=== PATIENT | male | born 1955 | race Asian ===

== ENCOUNTER 2017-10-12 14:20 | Inpatient (IN) | payer OTHER ==
[2017-10-12] MEDS ORDERED: PROPOFOL 100 ML (14:27)
[2017-10-12] MEDS: PROPOFOL 100 ML IV (14:30)
[2017-10-12] MEDS ORDERED: morphine 2 MG INJ IV ×2 (15:00→16:30)
[2017-10-12] MEDS ORDERED: NACL 0.9% 3 ML SYG IV (16:30)
[2017-10-12] MEDS ORDERED: IPRATROPIUM (NEB) 0.5 MG/2.5 ML AMP NEB (16:30)
[2017-10-12 17:18] LABS: ANION GAP 11 (8-16); BLOOD UREA NITROGEN 23 mg/dl (7-20); CALCIUM 8.5 mg/dl (8.4-10.2); CARBON DIOXIDE 29 mmol/L (21-31); CHLORIDE 110 mmol/L (97-110); CREATININE 0.87 mg/dl (0.61-1.24); GLUCOSE 179 mg/dl (70-220); POTASSIUM 3.5 mmol/L (3.5-5.1); SODIUM 146 mmol/L (135-144)
[2017-10-12] MEDS: ALBUTEROL/IPRATROPIUM (NEB) 3 ML AMP NEB (17:43)
[2017-10-12] MEDS: IPRATROPIUM (NEB) 0.5 MG/2.5 ML AMP NEB (17:43)
[2017-10-12] MEDS: FUROSEMIDE 40 MG TAB GTB (17:58)
[2017-10-12] MEDS: CEFTRIAXONE 1 GM/50 ML (PMX) 50 ML IVPB (17:58)
[2017-10-12] MEDS: PANTOPRAZOLE 40 MG INJ IV (18:03)
[2017-10-12] MEDS: INSULIN ASPART [NOVOLOG] 3 ML PEN SC (18:04)
[2017-10-12 18:07] LABS: AADO2 Arterial 152.7 mmHg (7.0-24.0); Allen Test ACCEPTAB; Arterial Base Excess 1.7 mmol/L (-3.0-3); Arterial Blood Gas Oxygen Sat 98.7 mmHG (95.0-98.0); Arterial COHb 0.3 % (0.0-3.0); Arterial HCO3 23.9 mmol/L (22.0-26.0); Arterial MetHb 0.4 % (0.0-1.5); Arterial Total Hemglobin 9.1 g/dl (12.0-18.0); Arterial pCO2 28.7 mmhg (35-45); MODE VENT - AC; Site Left Radial
[2017-10-12] MEDS ORDERED: GLUCOSE GEL 15 GRAM TUBE PO ×2 (20:30)
[2017-10-12] MEDS ORDERED: DEXTROSE 50% 50 ML SYRINGE IV ×2 (20:30)
[2017-10-12] MEDS ORDERED: GLUCOSE GEL 15 GRAM TUBE BUCCAL (20:30)
[2017-10-12] MEDS ORDERED: GLUCAGON 1 MG INJ IM (20:30)
[2017-10-12] MEDS ORDERED: LEVETIRACETAM 500 MG IV (21:00)
[2017-10-12] MEDS: ALBUTEROL HFA 8 GM INHALER INH (21:14)
[2017-10-12] MEDS: IPRATROPIUM (HFA) 12.9 GM INHALER INH (21:14)
[2017-10-12] MEDS: AMLODIPINE 5 MG TAB PO (21:52)
[2017-10-12] MEDS: LEVETIRACETAM 500 MG (PMX) 100 ML IVPB (21:52)
[2017-10-12] MEDS: LABETALOL 100 MG TAB GTB (21:53)
[2017-10-12] MEDS ORDERED: NIFEdipine 10 MG CAP PO (22:00)
[2017-10-13] MEDS: PROPOFOL 100 ML IV (00:23)
[2017-10-13] MEDS: INSULIN ASPART [NOVOLOG] 3 ML PEN SC ×4 (00:27→17:51)
[2017-10-13] MEDS: IPRATROPIUM (HFA) 12.9 GM INHALER INH ×6 (01:24→21:26)
[2017-10-13] MEDS: ALBUTEROL HFA 8 GM INHALER INH ×6 (01:24→21:25)
[2017-10-13] MEDS: ACETAMINOPHEN 325 MG TAB PO ×2 (01:50→21:33)
[2017-10-13] MEDS ORDERED: ACCU-CHEK XX (02:00)
[2017-10-13 02:22] LABS: ADD UMIC YES; UR ASCORBIC ACID 40 mg/dL (NEGATIVE); UR BILIRUBIN (Dip) NEGATIVE (NEGATIVE); UR BLOOD (Dip) NEGATIVE (NEGATIVE); UR CLARITY CLEAR (CLEAR); UR COLOR YELLOW (YELLOW); UR GLUCOSE (Dip) NEGATIVE (NEGATIVE); UR KETONES (Dip) TRACE mg/dL (NEGATIVE); UR LEUKOCYTE ESTERASE (Dip) NEGATIVE Leu/ul (NEGATIVE); UR NITRITE (Dip) NEGATIVE (NEGATIVE); UR RBC 18 /HPF (0-5); UR SPECIFIC GRAVITY (Dip) 1.018 (1.003-1.030); UR TOTAL PROTEIN (Dip) 1+ mg/dl (NEGATIVE); UR UROBILINOGEN (Dip) NEGATIVE (NEGATIVE); UR WBC 4 /HPF (0-5)
[2017-10-13] MEDS: PANTOPRAZOLE 40 MG INJ IV (05:06)
[2017-10-13] MEDS: FUROSEMIDE 40 MG TAB GTB ×2 (05:06→17:00)
[2017-10-13 05:49] LABS: ADD MAN DIFF? NO
[2017-10-13 05:56] LABS: BASOPHILS % 0.2 % (0.0-2.0); EOSINOPHILS # 0.3 10^3/ul (0.0-0.5); EOSINOPHILS % 1.8 % (0.0-7.0); HEMATOCRIT 25.6 % (42.0-52.0); HEMOGLOBIN 8.3 g/dl (14.0-18.0); LYMPHOCYTES # 1.3 10^3/ul (0.8-2.9); LYMPHOCYTES % 8.4 % (15.0-51.0); MEAN CORPUSCULAR HEMOGLOBIN 30.1 pg (29.0-33.0); MEAN CORPUSCULAR HGB CONC 32.4 g/dl (32.0-37.0); MEAN CORPUSCULAR VOLUME 92.8 fl (82.0-101.0); MEAN PLATELET VOLUME 10.3 fl (7.4-10.4); MONOCYTE # 0.8 10^3/ul (0.3-0.9); MONOCYTES % 5.2 % (0.0-11.0); NEUTROPHIL # 12.7 10^3/ul (1.6-7.5); NEUTROPHILS % 83.6 % (39.0-77.0); PLATELET COUNT 457 10^3/UL (140-415); RED BLOOD COUNT 2.76 10^6/ul (4.70-6.10); RED CELL DISTRIBUTION WIDTH 13.3 % (11.5-14.5)
[2017-10-13 05:56] LABS: WHITE BLOOD COUNT 15.2 10^3/ul (4.8-10.8)
[2017-10-13 06:18] LABS: ANION GAP 13 (8-16); BLOOD UREA NITROGEN 21 mg/dl (7-20); CALCIUM 8.3 mg/dl (8.4-10.2); CARBON DIOXIDE 28 mmol/L (21-31); CHLORIDE 109 mmol/L (97-110); CREATININE 0.86 mg/dl (0.61-1.24); GLUCOSE 164 mg/dl (70-220); MAGNESIUM 1.9 mg/dl (1.7-2.5); PHOSPHORUS 4.3 mg/dl (2.5-4.9); POTASSIUM 3.5 mmol/L (3.5-5.1); SODIUM 146 mmol/L (135-144)
[2017-10-13 08:10] LABS: AADO2 Arterial 73.8 mmHg (7.0-24.0); Allen Test ACCEPTAB; Arterial Base Excess 2.5 mmol/L (-3.0-3); Arterial Blood Gas Oxygen Sat 97.6 mmHG (95.0-98.0); Arterial COHb 0.3 % (0.0-3.0); Arterial Fraction of Oxyhgb 97.1 % (93.0-99.0); Arterial HCO3 24.2 mmol/L (22.0-26.0); Arterial MetHb 0.2 % (0.0-1.5); Arterial Total Hemglobin 9.9 g/dl (12.0-18.0); Arterial pCO2 27.6 mmhg (35-45); MODE VENT - AC; Site Right Radial
[2017-10-13] MEDS: LEVETIRACETAM 500 MG (PMX) 100 ML IVPB ×2 (08:44→21:16)
[2017-10-13] MEDS: AMLODIPINE 5 MG TAB PO ×2 (08:47→21:16)
[2017-10-13] MEDS: LABETALOL 100 MG TAB GTB ×2 (08:47→21:16)
[2017-10-13 11:37] LABS: AADO2 Arterial 71.6 mmHg (7.0-24.0); Allen Test ACCEPTAB; Arterial Base Excess 1.6 mmol/L (-3.0-3); Arterial Blood Gas Oxygen Sat 97.4 mmHG (95.0-98.0); Arterial COHb 0.3 % (0.0-3.0); Arterial Fraction of Oxyhgb 96.9 % (93.0-99.0); Arterial HCO3 24.4 mmol/L (22.0-26.0); Arterial MetHb 0.2 % (0.0-1.5); Arterial Total Hemglobin 10.1 g/dl (12.0-18.0); Arterial pCO2 32.1 mmhg (35-45); Blood Gas PS 10; MODE VENT - CPAP; Site Right Radial
[2017-10-13] MEDS: METOCLOPRAMIDE 10 MG INJ IV ×2 (12:13→17:00)
[2017-10-13] MEDS: SOD FERRIC GLUC COMPLX 125 MG in SOD CHLORIDE 0.9% 100 ML IVPB (17:01)
[2017-10-13] MEDS: CEFTRIAXONE 1 GM/50 ML (PMX) 50 ML IVPB (17:01)
[2017-10-14] MEDS: METOCLOPRAMIDE 10 MG INJ IV ×4 (00:46→18:21)
[2017-10-14] MEDS: INSULIN ASPART [NOVOLOG] 3 ML PEN SC ×4 (00:52→18:21)
[2017-10-14] MEDS: IPRATROPIUM (HFA) 12.9 GM INHALER INH ×6 (01:36→20:02)
[2017-10-14] MEDS: ALBUTEROL HFA 8 GM INHALER INH ×6 (01:36→20:02)
[2017-10-14 02:44] LABS: AADO2 Arterial 223.1 mmHg (7.0-24.0); Arterial Base Excess 3.3 mmol/L (-3.0-3); Arterial Blood Gas Oxygen Sat 99.3 mmHG (95.0-98.0); Arterial COHb 0.3 % (0.0-3.0); Arterial Fraction of Oxyhgb 98.5 % (93.0-99.0); Arterial HCO3 26.8 mmol/L (22.0-26.0); Arterial MetHb 0.5 % (0.0-1.5); Arterial pCO2 36.7 mmhg (35-45); MODE MASK - NRB; Site LB
[2017-10-14] MEDS: PROPOFOL 100 ML IV ×3 (05:24→18:42)
[2017-10-14] MEDS: PANTOPRAZOLE 40 MG INJ IV (05:28)
[2017-10-14] MEDS: FUROSEMIDE 40 MG TAB GTB ×3 (05:29→20:58)
[2017-10-14 05:45] LABS: ADD MAN DIFF? NO
[2017-10-14 05:52] LABS: Allen Test ACCEPTAB; Arterial Base Excess 2.4 mmol/L (-3.0-3); Arterial Blood Gas Oxygen Sat 93.9 mmHG (95.0-98.0); Arterial COHb 0.3 % (0.0-3.0); Arterial Fraction of Oxyhgb 93.1 % (93.0-99.0); Arterial HCO3 25.1 mmol/L (22.0-26.0); Arterial MetHb 0.5 % (0.0-1.5); Arterial Total Hemglobin 9.4 g/dl (12.0-18.0); MODE VENT - AC
[2017-10-14 06:03] LABS: BASOPHIL # 0.1 10^3/ul (0.0-0.1); BASOPHILS % 0.2 % (0.0-2.0); EOSINOPHILS # 0.2 10^3/ul (0.0-0.5); EOSINOPHILS % 1.1 % (0.0-7.0); HEMATOCRIT 30.5 % (42.0-52.0); HEMOGLOBIN 9.9 g/dl (14.0-18.0); LYMPHOCYTES # 1.2 10^3/ul (0.8-2.9); LYMPHOCYTES % 5.7 % (15.0-51.0); MEAN CORPUSCULAR HEMOGLOBIN 29.8 pg (29.0-33.0); MEAN CORPUSCULAR HGB CONC 32.5 g/dl (32.0-37.0); MEAN CORPUSCULAR VOLUME 91.9 fl (82.0-101.0); MEAN PLATELET VOLUME 10.5 fl (7.4-10.4); MONOCYTE # 1.2 10^3/ul (0.3-0.9); MONOCYTES % 6.1 % (0.0-11.0); NEUTROPHIL # 17.4 10^3/ul (1.6-7.5); NEUTROPHILS % 86.1 % (39.0-77.0); PLATELET COUNT 576 10^3/UL (140-415); RED BLOOD COUNT 3.32 10^6/ul (4.70-6.10); RED CELL DISTRIBUTION WIDTH 13.1 % (11.5-14.5)
[2017-10-14 06:03] LABS: WHITE BLOOD COUNT 20.2 10^3/ul (4.8-10.8)
[2017-10-14 06:28] LABS: ANION GAP 16 (8-16); BLOOD UREA NITROGEN 18 mg/dl (7-20); CALCIUM 8.1 mg/dl (8.4-10.2); CARBON DIOXIDE 28 mmol/L (21-31); CHLORIDE 104 mmol/L (97-110); GLUCOSE 167 mg/dl (70-220); SODIUM 144 mmol/L (135-144)
[2017-10-14] MEDS ORDERED: niCARdipine 50 MG in SOD CHLORIDE 0.9% 480 ML IV (07:30)
[2017-10-14] MEDS: LABETALOL 100 MG TAB GTB ×2 (08:49→23:40)
[2017-10-14] MEDS: LEVETIRACETAM 500 MG (PMX) 100 ML IVPB ×2 (08:50→21:00)
[2017-10-14] MEDS: AMLODIPINE 5 MG TAB GTB (08:50)
[2017-10-14] MEDS: ACETAMINOPHEN 650MG/20.3ML CUP GTB (12:08)
[2017-10-14] MEDS: CEFTRIAXONE 1 GM/50 ML (PMX) 50 ML IVPB (16:26)
[2017-10-14] MEDS: SOD FERRIC GLUC COMPLX 125 MG in SOD CHLORIDE 0.9% 100 ML IVPB (17:15)
[2017-10-14] MEDS: INSULIN GLARGINE [LANtus] 3 ML PEN SC (21:26)
[2017-10-15] MEDS: METOCLOPRAMIDE 10 MG INJ IV ×5 (00:56→23:27)
[2017-10-15] MEDS: INSULIN ASPART [NOVOLOG] 3 ML PEN SC ×5 (01:10→20:25)
[2017-10-15] MEDS: ACETAMINOPHEN 650MG/20.3ML CUP GTB ×3 (01:32→20:15)
[2017-10-15] MEDS: ALBUTEROL HFA 8 GM INHALER INH ×6 (02:16→21:18)
[2017-10-15] MEDS: IPRATROPIUM (HFA) 12.9 GM INHALER INH ×6 (02:16→21:18)
[2017-10-15] MEDS ORDERED: VANCOMYCIN IV PER PHARMACY XX (02:30)
[2017-10-15] MEDS ORDERED: VANCOMYCIN 1.25 GM in SOD CHLORIDE 0.9% 250 ML IVPB (05:00)
[2017-10-15] MEDS: VANCOMYCIN 1 GM 250 ML IVPB (05:34)
[2017-10-15] MEDS: PANTOPRAZOLE 40 MG INJ IV (05:35)
[2017-10-15] MEDS: FUROSEMIDE 40 MG TAB GTB (05:36)
[2017-10-15 05:52] LABS: ADD MAN DIFF? NO
[2017-10-15 05:59] LABS: WHITE BLOOD COUNT 20.8 10^3/ul (4.8-10.8)
[2017-10-15 05:59] LABS: BASOPHILS % 0.2 % (0.0-2.0); EOSINOPHILS # 0.1 10^3/ul (0.0-0.5); EOSINOPHILS % 0.6 % (0.0-7.0); HEMATOCRIT 23.4 % (42.0-52.0); HEMOGLOBIN 7.8 g/dl (14.0-18.0); LYMPHOCYTES # 1.4 10^3/ul (0.8-2.9); LYMPHOCYTES % 6.9 % (15.0-51.0); MEAN CORPUSCULAR HEMOGLOBIN 30.7 pg (29.0-33.0); MEAN CORPUSCULAR HGB CONC 33.3 g/dl (32.0-37.0); MEAN CORPUSCULAR VOLUME 92.1 fl (82.0-101.0); MEAN PLATELET VOLUME 10.3 fl (7.4-10.4); MONOCYTE # 1.5 10^3/ul (0.3-0.9); MONOCYTES % 7.1 % (0.0-11.0); NEUTROPHIL # 17.6 10^3/ul (1.6-7.5); NEUTROPHILS % 84.2 % (39.0-77.0); PLATELET COUNT 457 10^3/UL (140-415); RED BLOOD COUNT 2.54 10^6/ul (4.70-6.10)
[2017-10-15 06:31] LABS: ANION GAP 11 (8-16); BLOOD UREA NITROGEN 20 mg/dl (7-20); CARBON DIOXIDE 29 mmol/L (21-31); CHLORIDE 105 mmol/L (97-110); GLUCOSE 188 mg/dl (70-220); MAGNESIUM 1.9 mg/dl (1.7-2.5); PHOSPHORUS 3.6 mg/dl (2.5-4.9); SODIUM 142 mmol/L (135-144)
[2017-10-15 06:55] LABS: POTASSIUM 2.9 mmol/L (3.5-5.1)
[2017-10-15] MEDS: AMLODIPINE 5 MG TAB GTB (09:10)
[2017-10-15] MEDS: LEVETIRACETAM 500 MG (PMX) 100 ML IVPB ×2 (09:11→20:14)
[2017-10-15] MEDS: LABETALOL 100 MG TAB GTB ×2 (09:11→20:15)
[2017-10-15] MEDS: POTASSIUM CHLORIDE 20 MEQ/SW 100 ML IVPB ×2 (10:32→12:30)
[2017-10-15] MEDS: PROPOFOL 100 ML IV (11:28)
[2017-10-15 17:05] LABS: HEMATOCRIT 24.5 % (42.0-52.0)
[2017-10-15] MEDS: CEFTRIAXONE 1 GM/50 ML (PMX) 50 ML IVPB (17:16)
[2017-10-15 17:21] LABS: POTASSIUM 3.9 mmol/L (3.5-5.1)
[2017-10-15] MEDS: SOD FERRIC GLUC COMPLX 125 MG in SOD CHLORIDE 0.9% 100 ML IVPB (17:51)
[2017-10-15] MEDS ORDERED: INSULIN GLARGINE [LANtus] 3 ML PEN SC (20:00)
[2017-10-15] MEDS: VANCOMYCIN 750 MG in DEXTROSE 5% 150 ML IVPB (20:14)
[2017-10-15] MEDS: INSULIN GLARGINE [LANtus] 3 ML PEN SC (20:26)
[2017-10-16] MEDS: PROPOFOL 100 ML IV (00:38)
[2017-10-16] MEDS: INSULIN ASPART [NOVOLOG] 3 ML PEN SC ×6 (01:22→20:29)
[2017-10-16] MEDS: ALBUTEROL HFA 8 GM INHALER INH ×6 (01:28→21:56)
[2017-10-16] MEDS: IPRATROPIUM (HFA) 12.9 GM INHALER INH ×6 (01:28→21:56)
[2017-10-16] MEDS: ACETAMINOPHEN 650MG/20.3ML CUP GTB ×3 (03:13→16:33)
[2017-10-16 05:34] LABS: ADD MAN DIFF? NO
[2017-10-16] MEDS: PANTOPRAZOLE 40 MG INJ IV (05:44)
[2017-10-16] MEDS: METOCLOPRAMIDE 10 MG INJ IV ×3 (05:44→17:51)
[2017-10-16] MEDS: VANCOMYCIN 750 MG in DEXTROSE 5% 150 ML IVPB (05:44)
[2017-10-16 06:05] LABS: WHITE BLOOD COUNT 22.1 10^3/ul (4.8-10.8)
[2017-10-16 06:05] LABS: BASOPHILS % 0.1 % (0.0-2.0); EOSINOPHILS # 0.1 10^3/ul (0.0-0.5); EOSINOPHILS % 0.5 % (0.0-7.0); HEMATOCRIT 22.4 % (42.0-52.0); HEMOGLOBIN 7.4 g/dl (14.0-18.0); LYMPHOCYTES # 1.1 10^3/ul (0.8-2.9); MEAN CORPUSCULAR HEMOGLOBIN 29.8 pg (29.0-33.0); MEAN CORPUSCULAR VOLUME 90.3 fl (82.0-101.0); MEAN PLATELET VOLUME 10.3 fl (7.4-10.4); MONOCYTE # 1.3 10^3/ul (0.3-0.9); MONOCYTES % 5.8 % (0.0-11.0); NEUTROPHIL # 19.3 10^3/ul (1.6-7.5); NEUTROPHILS % 87.3 % (39.0-77.0); PLATELET COUNT 507 10^3/UL (140-415); RED BLOOD COUNT 2.48 10^6/ul (4.70-6.10); RED CELL DISTRIBUTION WIDTH 12.8 % (11.5-14.5)
[2017-10-16 07:46] LABS: ALANINE AMINOTRANSFERASE 25 IU/L (13-69); ALBUMIN 2.5 g/dl (3.3-4.9); ALBUMIN/GLOBULIN RATIO 0.73; ALKALINE PHOSPHATASE 125 IU/L (42-121); ANION GAP 10 (8-16); ASPARTATE AMINO TRANSFERASE 23 IU/L (15-46); BILIRUBIN,INDIRECT 0.2 mg/dl (0-1.1); BILIRUBIN,TOTAL 0.2 mg/dl (0.2-1.3); BLOOD UREA NITROGEN 18 mg/dl (7-20); CARBON DIOXIDE 28 mmol/L (21-31); CHLORIDE 103 mmol/L (97-110); GLUCOSE 222 mg/dl (70-220); POTASSIUM 3.3 mmol/L (3.5-5.1); SODIUM 138 mmol/L (135-144); TOTAL PROTEIN 5.9 g/dl (6.1-8.1)
[2017-10-16] MEDS ORDERED: POTASSIUM CHLORIDE 20 MEQ POWDER FOR ORAL SOLN PO ×2 (08:30)
[2017-10-16] MEDS: LEVETIRACETAM 500 MG (PMX) 100 ML IVPB ×2 (08:46→20:19)
[2017-10-16] MEDS: LABETALOL 100 MG TAB GTB ×2 (08:47→20:19)
[2017-10-16] MEDS: FUROSEMIDE 40 MG TAB GTB (08:47)
[2017-10-16] MEDS: AMLODIPINE 5 MG TAB GTB (08:48)
[2017-10-16] MEDS: POTASSIUM CHLORIDE 20 MEQ POWDER FOR ORAL SOLN PO (08:51)
[2017-10-16] MEDS: CEFEPIME 2GM/50 ML (PMX) 50 ML IVPB ×2 (11:28→20:19)
[2017-10-16 12:31] LABS: IRON 23 ug/dl (35-150)
[2017-10-16 12:40] LABS: % IRON SATURATION 14 % SAT (22-52); TOTAL IRON BINDING CAPACITY 170 ug/dl (241-421)
[2017-10-16] MEDS ORDERED: INSULIN ASPART [NOVOLOG] 3 ML PEN SC (13:00)
[2017-10-16 14:48] LABS: AADO2 Arterial 81.2 mmHg (7.0-24.0); Allen Test ACCEPTAB; Arterial Base Excess 1.3 mmol/L (-3.0-3); Arterial Blood Gas Oxygen Sat 97.3 mmHG (95.0-98.0); Arterial COHb 0.2 % (0.0-3.0); Arterial Fraction of Oxyhgb 96.6 % (93.0-99.0); Arterial HCO3 24.1 mmol/L (22.0-26.0); Arterial MetHb 0.5 % (0.0-1.5); Arterial Total Hemglobin 8.9 g/dl (12.0-18.0); Arterial pCO2 31.3 mmhg (35-45); Blood Gas PS 10; MODE VENT - CPAP; Site Right Radial
[2017-10-16] MEDS: SOD FERRIC GLUC COMPLX 125 MG in SOD CHLORIDE 0.9% 100 ML IVPB (16:33)
[2017-10-16 16:45] LABS: VANCOMYCIN,TROUGH 8.5 ug/ml (10.0-20.0)
[2017-10-16] MEDS: VANCOMYCIN 1 GM 250 ML IVPB (17:51)
[2017-10-16] MEDS: INSULIN GLARGINE [LANtus] 3 ML PEN SC (20:28)
[2017-10-17] MEDS: INSULIN ASPART [NOVOLOG] 3 ML PEN SC ×6 (00:02→20:45)
[2017-10-17] MEDS: ALBUTEROL HFA 8 GM INHALER INH ×6 (01:23→21:53)
[2017-10-17] MEDS: IPRATROPIUM (HFA) 12.9 GM INHALER INH ×6 (01:23→21:52)
[2017-10-17] MEDS ORDERED: ACCU-CHEK XX (02:00)
[2017-10-17] MEDS: ACETAMINOPHEN 650MG/20.3ML CUP GTB (04:23)
[2017-10-17] MEDS: PROPOFOL 100 ML IV ×2 (04:24→23:57)
[2017-10-17] MEDS: VANCOMYCIN 1 GM 250 ML IVPB (04:31)
[2017-10-17 05:06] LABS: ABNORMAL IP MESSAGE 1; HEMATOCRIT 25.8 % (42.0-52.0); HEMOGLOBIN 8.4 g/dl (14.0-18.0); MEAN CORPUSCULAR HEMOGLOBIN 29.7 pg (29.0-33.0); MEAN CORPUSCULAR HGB CONC 32.6 g/dl (32.0-37.0); MEAN CORPUSCULAR VOLUME 91.2 fl (82.0-101.0); MEAN PLATELET VOLUME 10.1 fl (7.4-10.4); PLATELET COUNT 592 10^3/UL (140-415); POSITIVE DIFF @See below; RED BLOOD COUNT 2.83 10^6/ul (4.70-6.10); RED CELL DISTRIBUTION WIDTH 12.9 % (11.5-14.5)
[2017-10-17 05:38] LABS: ALANINE AMINOTRANSFERASE 35 IU/L (13-69); ALBUMIN 2.8 g/dl (3.3-4.9); ALBUMIN/GLOBULIN RATIO 0.73; ALKALINE PHOSPHATASE 183 IU/L (42-121); ANION GAP 12 (8-16); ASPARTATE AMINO TRANSFERASE 31 IU/L (15-46); BILIRUBIN,INDIRECT 0.3 mg/dl (0-1.1); BILIRUBIN,TOTAL 0.3 mg/dl (0.2-1.3); BLOOD UREA NITROGEN 16 mg/dl (7-20); CALCIUM 8.4 mg/dl (8.4-10.2); CARBON DIOXIDE 29 mmol/L (21-31); CHLORIDE 103 mmol/L (97-110); CREATININE 0.78 mg/dl (0.61-1.24); GLUCOSE 122 mg/dl (70-220); POTASSIUM 3.7 mmol/L (3.5-5.1); SODIUM 140 mmol/L (135-144); TOTAL PROTEIN 6.6 g/dl (6.1-8.1)
[2017-10-17] MEDS: PANTOPRAZOLE 40 MG INJ IV (05:40)
[2017-10-17] MEDS: METOCLOPRAMIDE 10 MG INJ IV ×4 (05:40→17:19)
[2017-10-17 05:47] LABS: PHOSPHORUS 3.2 mg/dl (2.5-4.9)
[2017-10-17 05:47] LABS: ADD MAN DIFF? YES; MAGNESIUM 1.8 mg/dl (1.7-2.5)
[2017-10-17] MEDS: LEVETIRACETAM 500 MG (PMX) 100 ML IVPB ×2 (08:57→20:46)
[2017-10-17] MEDS: CEFEPIME 2GM/50 ML (PMX) 50 ML IVPB (08:57)
[2017-10-17] MEDS: FUROSEMIDE 40 MG TAB GTB (08:59)
[2017-10-17] MEDS: LABETALOL 100 MG TAB GTB ×2 (08:59→20:41)
[2017-10-17] MEDS: AMLODIPINE 10 MG TAB GTB (09:00)
[2017-10-17 13:55] LABS: ANISOCYTOSIS 1+ (0-0); BAND NEUTROPHILS #M 4.4 10^3/ul (0.0-0.6); BAND NEUTROPHILS % (M) 17 % (0-4); EOSINOPHILS % (M) 1 % (0-7); LYMPHOCYTES #M 1.8 10^3/ul (0.8-2.9); LYMPHOCYTES % (M) 7 % (15-51); MONOCYTE #M 1.3 10^3/ul (0.3-0.9); MONOCYTES % (M) 5 % (0-11); OVALOCYTES 1+ (0-0); PLATELET ESTIMATE INCREASED; POIKILOCYTOSIS 1+ (0-0); POLYCHROMASIA 1+ (0-0); SEG NEUT #M 19.3 10^3/ul (1.6-7.5); SEGMENTED NEUTROPHILS (M) % 70 % (39-77)
[2017-10-17] MEDS: PIPER-TAZO 3.375 GM IV (PMX) 100 ML IVPB ×2 (15:03→22:21)
[2017-10-17] MEDS: DOCUSATE SODIUM 10 MG/ML (10ML CUP) GTB (20:40)
[2017-10-17] MEDS: INSULIN GLARGINE [LANtus] 3 ML PEN SC (20:44)
[2017-10-18] MEDS: METOCLOPRAMIDE 10 MG INJ IV ×4 (00:05→17:04)
[2017-10-18] MEDS: ACETAMINOPHEN 650MG/20.3ML CUP GTB (00:05)
[2017-10-18] MEDS: INSULIN ASPART [NOVOLOG] 3 ML PEN SC ×6 (01:00→21:49)
[2017-10-18] MEDS: IPRATROPIUM (HFA) 12.9 GM INHALER INH ×6 (01:16→21:03)
[2017-10-18] MEDS: ALBUTEROL HFA 8 GM INHALER INH ×6 (01:16→21:04)
[2017-10-18 05:11] LABS: ABNORMAL IP MESSAGE 1; HEMATOCRIT 22.7 % (42.0-52.0); HEMOGLOBIN 7.6 g/dl (14.0-18.0); MEAN CORPUSCULAR HEMOGLOBIN 30.5 pg (29.0-33.0); MEAN CORPUSCULAR HGB CONC 33.5 g/dl (32.0-37.0); MEAN CORPUSCULAR VOLUME 91.2 fl (82.0-101.0); MEAN PLATELET VOLUME 10.1 fl (7.4-10.4); PLATELET COUNT 529 10^3/UL (140-415); POSITIVE DIFF @See below; RED BLOOD COUNT 2.49 10^6/ul (4.70-6.10); RED CELL DISTRIBUTION WIDTH 12.7 % (11.5-14.5)
[2017-10-18 05:21] LABS: ADD MAN DIFF? YES
[2017-10-18] MEDS: PANTOPRAZOLE 40 MG INJ IV (05:31)
[2017-10-18] MEDS: PIPER-TAZO 3.375 GM IV (PMX) 100 ML IVPB ×3 (05:31→21:39)
[2017-10-18 05:48] LABS: ALANINE AMINOTRANSFERASE 32 IU/L (13-69); ALBUMIN 2.6 g/dl (3.3-4.9); ALKALINE PHOSPHATASE 186 IU/L (42-121); ANION GAP 12 (8-16); ASPARTATE AMINO TRANSFERASE 31 IU/L (15-46); BILIRUBIN,INDIRECT 0.4 mg/dl (0-1.1); BILIRUBIN,TOTAL 0.4 mg/dl (0.2-1.3); BLOOD UREA NITROGEN 18 mg/dl (7-20); CALCIUM 8.1 mg/dl (8.4-10.2); CARBON DIOXIDE 29 mmol/L (21-31); CHLORIDE 100 mmol/L (97-110); CREATININE 0.87 mg/dl (0.61-1.24); GLUCOSE 147 mg/dl (70-220); SODIUM 138 mmol/L (135-144); TOTAL PROTEIN 6.3 g/dl (6.1-8.1)
[2017-10-18 05:50] LABS: POTASSIUM 2.8 mmol/L (3.5-5.1)
[2017-10-18] MEDS: POTASSIUM CHLORIDE 20 MEQ POWDER FOR ORAL SOLN PO (05:57)
[2017-10-18 07:00] LABS: MAGNESIUM 1.9 mg/dl (1.7-2.5)
[2017-10-18 07:00] LABS: PHOSPHORUS 3.3 mg/dl (2.5-4.9)
[2017-10-18 07:43] LABS: BAND NEUTROPHILS #M 3.2 10^3/ul (0.0-0.6); BAND NEUTROPHILS % (M) 12 % (0-4); EOSINOPHILS % (M) 1 % (0-7); LYMPHOCYTES #M 0.8 10^3/ul (0.8-2.9); LYMPHOCYTES % (M) 3 % (15-51); MONOCYTE #M 0.2 10^3/ul (0.3-0.9); MONOCYTES % (M) 1 % (0-11); PLATELET ESTIMATE INCREASED; SEG NEUT #M 23.3 10^3/ul (1.6-7.5); SEGMENTED NEUTROPHILS (M) % 83 % (39-77); SMUDGE%M 1 % (0-0)
[2017-10-18] MEDS: AMLODIPINE 10 MG TAB GTB (08:32)
[2017-10-18] MEDS: LABETALOL 100 MG TAB GTB ×2 (08:32→09:47)
[2017-10-18] MEDS: DOCUSATE SODIUM 10 MG/ML (10ML CUP) GTB ×2 (08:36→21:39)
[2017-10-18] MEDS: LEVETIRACETAM 500 MG (PMX) 100 ML IVPB ×2 (08:37→21:39)
[2017-10-18] MEDS: FUROSEMIDE 40 MG TAB GTB (08:37)
[2017-10-18 09:23] LABS: AADO2 Arterial 57.3 mmHg (7.0-24.0); Allen Test ACCEPTAB; Arterial Base Excess 4.5 mmol/L (-3.0-3); Arterial Blood Gas Oxygen Sat 98.3 mmHG (95.0-98.0); Arterial COHb 0.5 % (0.0-3.0); Arterial Fraction of Oxyhgb 97.3 % (93.0-99.0); Arterial HCO3 27.4 mmol/L (22.0-26.0); Arterial MetHb 0.5 % (0.0-1.5); Arterial Total Hemglobin 7.3 g/dl (12.0-18.0); Arterial pCO2 33.4 mmhg (35-45); MODE VENT - AC; Site Right Radial
[2017-10-18] MEDS: POTASSIUM CHLORIDE 100 ML IVPB (09:54)
[2017-10-18] MEDS: FENTAnyl (DRIP) 1000 mcg/100mL 100 ML IV (15:00)
[2017-10-18 16:24] LABS: POTASSIUM 3.7 mmol/L (3.5-5.1)
[2017-10-18] MEDS: PROPOFOL 100 ML IV (17:04)
[2017-10-18] MEDS: INSULIN GLARGINE [LANtus] 3 ML PEN SC (21:48)
[2017-10-19] MEDS: ALBUTEROL HFA 8 GM INHALER INH ×5 (00:48→16:49)
[2017-10-19] MEDS: IPRATROPIUM (HFA) 12.9 GM INHALER INH ×5 (00:49→16:49)
[2017-10-19] MEDS: INSULIN ASPART [NOVOLOG] 3 ML PEN SC ×6 (01:00→20:52)
[2017-10-19] MEDS: METOCLOPRAMIDE 10 MG INJ IV ×5 (01:02→23:54)
[2017-10-19] MEDS: PANTOPRAZOLE 40 MG INJ IV (05:19)
[2017-10-19] MEDS: PIPER-TAZO 3.375 GM IV (PMX) 100 ML IVPB ×3 (05:19→21:36)
[2017-10-19] MEDS: PROPOFOL 100 ML IV (05:19)
[2017-10-19 05:24] LABS: WHITE BLOOD COUNT 28.5 10^3/ul (4.8-10.8)
[2017-10-19 05:24] LABS: ABNORMAL IP MESSAGE 1; HEMATOCRIT 22.9 % (42.0-52.0); HEMOGLOBIN 7.6 g/dl (14.0-18.0); MEAN CORPUSCULAR HEMOGLOBIN 30.4 pg (29.0-33.0); MEAN CORPUSCULAR HGB CONC 33.2 g/dl (32.0-37.0); MEAN CORPUSCULAR VOLUME 91.6 fl (82.0-101.0); MEAN PLATELET VOLUME 9.8 fl (7.4-10.4); PLATELET COUNT 504 10^3/UL (140-415); POSITIVE DIFF @See below; RED CELL DISTRIBUTION WIDTH 12.6 % (11.5-14.5)
[2017-10-19 05:49] LABS: ALANINE AMINOTRANSFERASE 36 IU/L (13-69); ALBUMIN 2.4 g/dl (3.3-4.9); ALBUMIN/GLOBULIN RATIO 0.63; ALKALINE PHOSPHATASE 237 IU/L (42-121); ANION GAP 8 (8-16); ASPARTATE AMINO TRANSFERASE 32 IU/L (15-46); BILIRUBIN,INDIRECT 0.1 mg/dl (0-1.1); BILIRUBIN,TOTAL 0.1 mg/dl (0.2-1.3); BLOOD UREA NITROGEN 17 mg/dl (7-20); CALCIUM 8.2 mg/dl (8.4-10.2); CARBON DIOXIDE 32 mmol/L (21-31); CHLORIDE 101 mmol/L (97-110); CREATININE 0.77 mg/dl (0.61-1.24); GLUCOSE 91 mg/dl (70-220); POTASSIUM 3.4 mmol/L (3.5-5.1); SODIUM 138 mmol/L (135-144); TOTAL PROTEIN 6.2 g/dl (6.1-8.1)
[2017-10-19 05:51] LABS: ADD MAN DIFF? YES
[2017-10-19 05:57] LABS: PHOSPHORUS 3.7 mg/dl (2.5-4.9)
[2017-10-19 05:57] LABS: MAGNESIUM 1.8 mg/dl (1.7-2.5)
[2017-10-19 07:28] LABS: BAND NEUTROPHILS #M 3.4 10^3/ul (0.0-0.6); BAND NEUTROPHILS % (M) 12 % (0-4); LYMPHOCYTES #M 0.2 10^3/ul (0.8-2.9); LYMPHOCYTES % (M) 1 % (15-51); MONOCYTE #M 1.1 10^3/ul (0.3-0.9); MONOCYTES % (M) 4 % (0-11); MYELOCYTES #M 0.2 10^3/ul (0.0-0.0); MYELOCYTES % (M) 1 % (0-0); PLATELET ESTIMATE NORMAL; SEG NEUT #M 24.3 10^3/ul (1.6-7.5); SEGMENTED NEUTROPHILS (M) % 82 % (39-77); SMUDGE%M 2 % (0-0)
[2017-10-19] MEDS: AMLODIPINE 10 MG TAB GTB (08:30)
[2017-10-19] MEDS: LABETALOL 100 MG TAB GTB ×2 (08:30→20:50)
[2017-10-19] MEDS: DOCUSATE SODIUM 10 MG/ML (10ML CUP) GTB ×2 (08:31→20:50)
[2017-10-19] MEDS: LEVETIRACETAM 500 MG (PMX) 100 ML IVPB ×2 (08:40→20:50)
[2017-10-19 14:28] LABS: AADO2 Arterial 113.6 mmHg (7.0-24.0); Allen Test ACCEPTAB; Arterial Blood Gas Oxygen Sat 89.1 mmHG (95.0-98.0); Arterial COHb 0.3 % (0.0-3.0); Arterial Fraction of Oxyhgb 88.4 % (93.0-99.0); Arterial MetHb 0.5 % (0.0-1.5); Arterial Total Hemglobin 7.1 g/dl (12.0-18.0); Arterial pCO2 37.7 mmhg (35-45); MODE VENT - CPAP; Site Right Radial
[2017-10-19] MEDS: INSULIN GLARGINE [LANtus] 3 ML PEN SC (20:53)
[2017-10-19] MEDS: ALBUTEROL/IPRATROPIUM (NEB) 3 ML AMP NEB (21:13)
[2017-10-20] MEDS: INSULIN ASPART [NOVOLOG] 3 ML PEN SC ×6 (01:00→21:00)
[2017-10-20] MEDS: METOCLOPRAMIDE 10 MG INJ IV ×3 (05:33→18:00)
[2017-10-20 05:45] LABS: ABNORMAL IP MESSAGE 1; HEMATOCRIT 23.9 % (42.0-52.0); MEAN CORPUSCULAR HEMOGLOBIN 30.1 pg (29.0-33.0); MEAN CORPUSCULAR HGB CONC 33.5 g/dl (32.0-37.0); MEAN CORPUSCULAR VOLUME 89.8 fl (82.0-101.0); MEAN PLATELET VOLUME 9.6 fl (7.4-10.4); PLATELET COUNT 623 10^3/UL (140-415); POSITIVE DIFF @See below; RED BLOOD COUNT 2.66 10^6/ul (4.70-6.10); RED CELL DISTRIBUTION WIDTH 12.5 % (11.5-14.5)
[2017-10-20 05:45] LABS: WHITE BLOOD COUNT 30.2 10^3/ul (4.8-10.8)
[2017-10-20 05:58] LABS: ADD MAN DIFF? YES
[2017-10-20 06:01] LABS: ANION GAP 14 (8-16); BLOOD UREA NITROGEN 16 mg/dl (7-20); CALCIUM 8.2 mg/dl (8.4-10.2); CARBON DIOXIDE 29 mmol/L (21-31); CHLORIDE 100 mmol/L (97-110); CREATININE 0.68 mg/dl (0.61-1.24); GLUCOSE 89 mg/dl (70-220); SODIUM 140 mmol/L (135-144)
[2017-10-20] MEDS: PIPER-TAZO 3.375 GM IV (PMX) 100 ML IVPB ×3 (06:04→22:17)
[2017-10-20] MEDS: PANTOPRAZOLE 40 MG INJ IV (06:04)
[2017-10-20] MEDS: POTASSIUM CHLORIDE 20 MEQ POWDER FOR ORAL SOLN PO (06:10)
[2017-10-20 08:33] LABS: BAND NEUTROPHILS #M 3.9 10^3/ul (0.0-0.6); BAND NEUTROPHILS % (M) 13 % (0-4); MONOCYTE #M 0.3 10^3/ul (0.3-0.9); MONOCYTES % (M) 1 % (0-11); PLATELET ESTIMATE INCREASED; SEG NEUT #M 27.1 10^3/ul (1.6-7.5); SEGMENTED NEUTROPHILS (M) % 86 % (39-77); SMUDGE%M 3 % (0-0)
[2017-10-20] MEDS: LEVETIRACETAM 500 MG (PMX) 100 ML IVPB ×2 (09:17→21:05)
[2017-10-20] MEDS: DOCUSATE SODIUM 10 MG/ML (10ML CUP) GTB ×2 (09:17→21:00)
[2017-10-20] MEDS: AMLODIPINE 10 MG TAB GTB (09:18)
[2017-10-20] MEDS ORDERED: VANCOMYCIN IV PER PHARMACY XX (10:30)
[2017-10-20 11:25] LABS: MAGNESIUM 1.9 mg/dl (1.7-2.5)
[2017-10-20 11:25] LABS: PHOSPHORUS 3.7 mg/dl (2.5-4.9)
[2017-10-20 11:27] LABS: ANION GAP 14 (8-16); BLOOD UREA NITROGEN 16 mg/dl (7-20); CALCIUM 8.2 mg/dl (8.4-10.2); CARBON DIOXIDE 26 mmol/L (21-31); CHLORIDE 103 mmol/L (97-110); CREATININE 0.64 mg/dl (0.61-1.24); GLUCOSE 89 mg/dl (70-220); POTASSIUM 3.8 mmol/L (3.5-5.1); SODIUM 139 mmol/L (135-144)
[2017-10-20] MEDS: LABETALOL 100 MG TAB GTB ×2 (12:00→21:00)
[2017-10-20] MEDS: VANCOMYCIN 1.25 GM in SOD CHLORIDE 0.9% 250 ML IVPB (12:01)
[2017-10-20] MEDS: IODIXANOL LOCM 100 ML BTL (16:11)
[2017-10-20] MEDS: SOD CHLORIDE 0.9% 100 ML (16:11)
[2017-10-20] MEDS: INSULIN GLARGINE [LANtus] 3 ML PEN SC (22:08)
[2017-10-20] MEDS: VANCOMYCIN 1 GM 250 ML IVPB (23:30)
[2017-10-21] MEDS: METOCLOPRAMIDE 10 MG INJ IV ×4 (00:28→17:20)
[2017-10-21] MEDS: INSULIN ASPART [NOVOLOG] 3 ML PEN SC ×6 (00:35→20:31)
[2017-10-21] MEDS: PIPER-TAZO 3.375 GM IV (PMX) 100 ML IVPB ×3 (06:04→21:45)
[2017-10-21] MEDS: PANTOPRAZOLE 40 MG INJ IV (06:04)
[2017-10-21 06:27] LABS: WHITE BLOOD COUNT 24.2 10^3/ul (4.8-10.8)
[2017-10-21 06:27] LABS: ABNORMAL IP MESSAGE 1; HEMATOCRIT 26.6 % (42.0-52.0); HEMOGLOBIN 8.9 g/dl (14.0-18.0); MEAN CORPUSCULAR HGB CONC 33.5 g/dl (32.0-37.0); MEAN CORPUSCULAR VOLUME 89.6 fl (82.0-101.0); MEAN PLATELET VOLUME 9.2 fl (7.4-10.4); PLATELET COUNT 752 10^3/UL (140-415); POSITIVE DIFF @See below; RED BLOOD COUNT 2.97 10^6/ul (4.70-6.10); RED CELL DISTRIBUTION WIDTH 12.5 % (11.5-14.5)
[2017-10-21 06:40] LABS: ANION GAP 20 (8-16); BLOOD UREA NITROGEN 14 mg/dl (7-20); CALCIUM 8.2 mg/dl (8.4-10.2); CARBON DIOXIDE 23 mmol/L (21-31); CHLORIDE 104 mmol/L (97-110); CREATININE 0.56 mg/dl (0.61-1.24); GLUCOSE 102 mg/dl (70-220); POTASSIUM 3.1 mmol/L (3.5-5.1); SODIUM 144 mmol/L (135-144)
[2017-10-21 06:44] LABS: ADD UMIC YES; UR ASCORBIC ACID NEGATIVE (NEGATIVE); UR BILIRUBIN (Dip) NEGATIVE (NEGATIVE); UR BLOOD (Dip) NEGATIVE (NEGATIVE); UR CLARITY CLEAR (CLEAR); UR COLOR YELLOW (YELLOW); UR GLUCOSE (Dip) NEGATIVE (NEGATIVE); UR KETONES (Dip) 2+ mg/dL (NEGATIVE); UR LEUKOCYTE ESTERASE (Dip) NEGATIVE Leu/ul (NEGATIVE); UR NITRITE (Dip) NEGATIVE (NEGATIVE); UR RBC 1 /HPF (0-5); UR SPECIFIC GRAVITY (Dip) 1.048 (1.003-1.030); UR TOTAL PROTEIN (Dip) 1+ mg/dl (NEGATIVE); UR UROBILINOGEN (Dip) 2+ mg/dL (NEGATIVE); UR WBC 1 /HPF (0-5)
[2017-10-21 06:50] LABS: MAGNESIUM 1.9 mg/dl (1.7-2.5)
[2017-10-21 06:50] LABS: PHOSPHORUS 3.7 mg/dl (2.5-4.9)
[2017-10-21 07:01] LABS: ADD MAN DIFF? YES
[2017-10-21] MEDS: DOCUSATE SODIUM 10 MG/ML (10ML CUP) GTB ×2 (08:04→20:27)
[2017-10-21] MEDS: LABETALOL 100 MG TAB GTB ×2 (08:04→20:27)
[2017-10-21] MEDS: AMLODIPINE 10 MG TAB GTB (08:05)
[2017-10-21] MEDS: LEVETIRACETAM 500 MG (PMX) 100 ML IVPB ×2 (09:26→20:30)
[2017-10-21 09:50] LABS: BURR CELLS 1+ (0-0); LYMPHOCYTES #M 1.4 10^3/ul (0.8-2.9); LYMPHOCYTES % (M) 6 % (15-51); MONOCYTE #M 0.9 10^3/ul (0.3-0.9); MONOCYTES % (M) 4 % (0-11); MYELOCYTES #M 0.4 10^3/ul (0.0-0.0); MYELOCYTES % (M) 2 % (0-0); PLASMA CELLS #M 0.2 10^3/ul (0.0-0.0); PLASMAC%(M) 1 % (0); PLATELET ESTIMATE INCREASED; POIKILOCYTOSIS 1+ (0-0); POLYCHROMASIA 1+ (0-0); SEGMENTED NEUTROPHILS (M) % 87 % (39-77)
[2017-10-21] MEDS: POTASSIUM CHLORIDE 100 ML IVPB ×2 (12:32→13:11)
[2017-10-21] MEDS: DEXTROSE 5%-0.45% NACL 1,000 ML IV (12:33)
[2017-10-21] MEDS: hydrALAzine 20 MG INJ IV (12:50)
[2017-10-21] MEDS: VANCOMYCIN 1 GM 250 ML IVPB (13:08)
[2017-10-21] MEDS: INSULIN GLARGINE [LANtus] 3 ML PEN SC (20:37)
[2017-10-21 23:54] LABS: VANCOMYCIN,TROUGH < 5.0 ug/ml (10.0-20.0)
[2017-10-22] MEDS: VANCOMYCIN 1 GM 250 ML IVPB (00:11)
[2017-10-22] MEDS: METOCLOPRAMIDE 10 MG INJ IV ×5 (00:15→23:31)
[2017-10-22] MEDS: INSULIN ASPART [NOVOLOG] 3 ML PEN SC ×6 (00:29→20:14)
[2017-10-22] MEDS: PANTOPRAZOLE 40 MG INJ IV (05:19)
[2017-10-22] MEDS: PIPER-TAZO 3.375 GM IV (PMX) 100 ML IVPB ×3 (05:25→22:17)
[2017-10-22] MEDS: LABETALOL 100 MG TAB GTB ×2 (08:35→21:00)
[2017-10-22] MEDS: AMLODIPINE 10 MG TAB GTB (08:35)
[2017-10-22] MEDS: DOCUSATE SODIUM 10 MG/ML (10ML CUP) GTB ×2 (08:37→21:00)
[2017-10-22] MEDS: LEVETIRACETAM 500 MG (PMX) 100 ML IVPB ×2 (08:37→20:20)
[2017-10-22 08:47] LABS: ABNORMAL IP MESSAGE 1; HEMATOCRIT 20.3 % (42.0-52.0); MEAN CORPUSCULAR HEMOGLOBIN 30.2 pg (29.0-33.0); MEAN CORPUSCULAR VOLUME 91.4 fl (82.0-101.0); MEAN PLATELET VOLUME 9.2 fl (7.4-10.4); PLATELET COUNT 646 10^3/UL (140-415); POSITIVE DIFF @See below; RED BLOOD COUNT 2.22 10^6/ul (4.70-6.10); RED CELL DISTRIBUTION WIDTH 12.8 % (11.5-14.5)
[2017-10-22 08:47] LABS: WHITE BLOOD COUNT 13.9 10^3/ul (4.8-10.8)
[2017-10-22 08:53] LABS: ADD MAN DIFF? YES; HEMOGLOBIN 6.7 g/dl (14.0-18.0)
[2017-10-22 09:05] LABS: ALANINE AMINOTRANSFERASE 30 IU/L (13-69); ALBUMIN 2.5 g/dl (3.3-4.9); ALBUMIN/GLOBULIN RATIO 0.71; ALKALINE PHOSPHATASE 108 IU/L (42-121); ANION GAP 19 (8-16); ASPARTATE AMINO TRANSFERASE 21 IU/L (15-46); BILIRUBIN,INDIRECT 0.2 mg/dl (0-1.1); BILIRUBIN,TOTAL 0.2 mg/dl (0.2-1.3); BLOOD UREA NITROGEN 17 mg/dl (7-20); CALCIUM 7.9 mg/dl (8.4-10.2); CARBON DIOXIDE 23 mmol/L (21-31); CHLORIDE 110 mmol/L (97-110); CREATININE 0.53 mg/dl (0.61-1.24); GLUCOSE 161 mg/dl (70-220); POTASSIUM 3.1 mmol/L (3.5-5.1); SODIUM 149 mmol/L (135-144)
[2017-10-22 10:02] LABS: BAND NEUTROPHILS #M 0.6 10^3/ul (0.0-0.6); BAND NEUTROPHILS % (M) 5 % (0-4); LYMPHOCYTES #M 1.1 10^3/ul (0.8-2.9); LYMPHOCYTES % (M) 8 % (15-51); METAMYELOCYTES #M 0.1 10^3/ul (0.0-0.0); METAMYELOCYTES %M 1 % (0-0); MONOCYTE #M 0.1 10^3/ul (0.3-0.9); MONOCYTES % (M) 1 % (0-11); MYELOCYTES #M 0.1 10^3/ul (0.0-0.0); MYELOCYTES % (M) 1 % (0-0); PLATELET ESTIMATE INCREASED; SEG NEUT #M 11.8 10^3/ul (1.6-7.5); SEGMENTED NEUTROPHILS (M) % 84 % (39-77); SMUDGE%M 4 % (0-0)
[2017-10-22] MEDS: VANCOMYCIN 750 MG in DEXTROSE 5% 150 ML IVPB ×2 (10:59→19:21)
[2017-10-22] MEDS: DEXTROSE 5%-0.45% NACL 1,000 ML IV (11:30)
[2017-10-22] MEDS: SOD CHLORIDE 0.9% 250 ML IV* (11:48)
[2017-10-22] MEDS: hydrALAzine 20 MG INJ IV ×3 (12:38→23:28)
[2017-10-22] MEDS: POTASSIUM CHLORIDE 100 ML IVPB ×2 (15:21→16:50)
[2017-10-22 16:07] LABS: IMMEDIATE SPIN CROSSMATCH 1 2
[2017-10-22] MEDS: INSULIN GLARGINE [LANtus] 3 ML PEN SC (20:12)
[2017-10-23] MEDS: INSULIN ASPART [NOVOLOG] 3 ML PEN SC ×6 (00:57→20:11)
[2017-10-23] MEDS: VANCOMYCIN 750 MG in DEXTROSE 5% 150 ML IVPB ×3 (02:03→21:35)
[2017-10-23] MEDS: hydrALAzine 20 MG INJ IV ×2 (04:37→15:01)
[2017-10-23] MEDS: METOCLOPRAMIDE 10 MG INJ IV ×4 (05:24→23:16)
[2017-10-23] MEDS: PIPER-TAZO 3.375 GM IV (PMX) 100 ML IVPB ×3 (05:24→21:28)
[2017-10-23] MEDS: PANTOPRAZOLE 40 MG INJ IV (05:24)
[2017-10-23] MEDS: DOCUSATE SODIUM 10 MG/ML (10ML CUP) GTB ×2 (08:19→20:05)
[2017-10-23 08:20] LABS: ABNORMAL IP MESSAGE 1; HEMATOCRIT 26.1 % (42.0-52.0); MEAN CORPUSCULAR HEMOGLOBIN 29.6 pg (29.0-33.0); MEAN CORPUSCULAR HGB CONC 34.5 g/dl (32.0-37.0); MEAN CORPUSCULAR VOLUME 85.9 fl (82.0-101.0); MEAN PLATELET VOLUME 8.9 fl (7.4-10.4); NUCLEATED RED BLOOD CELLS% 0.1 /100WBC (0.0-0.0); PLATELET COUNT 579 10^3/UL (140-415); POSITIVE DIFF @See below; RED BLOOD COUNT 3.04 10^6/ul (4.70-6.10); RED CELL DISTRIBUTION WIDTH 13.9 % (11.5-14.5)
[2017-10-23 08:20] LABS: WHITE BLOOD COUNT 13.6 10^3/ul (4.8-10.8)
[2017-10-23 08:21] LABS: ADD MAN DIFF? YES
[2017-10-23 08:35] LABS: ANION GAP 10 (8-16); BLOOD UREA NITROGEN 13 mg/dl (7-20); CARBON DIOXIDE 29 mmol/L (21-31); CHLORIDE 112 mmol/L (97-110); CREATININE 0.45 mg/dl (0.61-1.24); GLUCOSE 165 mg/dl (70-220); POTASSIUM 3.1 mmol/L (3.5-5.1); SODIUM 148 mmol/L (135-144)
[2017-10-23 08:36] LABS: MAGNESIUM 1.8 mg/dl (1.7-2.5)
[2017-10-23 08:36] LABS: PHOSPHORUS 2.8 mg/dl (2.5-4.9)
[2017-10-23] MEDS: LABETALOL 100 MG TAB GTB ×3 (08:37→20:05)
[2017-10-23] MEDS: AMLODIPINE 10 MG TAB GTB ×2 (08:39→17:53)
[2017-10-23] MEDS: LEVETIRACETAM 500 MG (PMX) 100 ML IVPB ×2 (09:31→20:05)
[2017-10-23] MEDS: PROPOFOL 20 ML (10:13)
[2017-10-23 10:30] LABS: ANISOCYTOSIS 1+ (0-0); BAND NEUTROPHILS #M 0.8 10^3/ul (0.0-0.6); BAND NEUTROPHILS % (M) 6 % (0-4); EOSINOPHILS % (M) 4 % (0-7); GIANT THROMBO% (M) 1 % (0-0); LYMPHOCYTES #M 1.2 10^3/ul (0.8-2.9); LYMPHOCYTES % (M) 9 % (15-51); METAMYELOCYTES #M 0.5 10^3/ul (0.0-0.0); METAMYELOCYTES %M 4 % (0-0); MONOCYTE #M 0.5 10^3/ul (0.3-0.9); MONOCYTES % (M) 4 % (0-11); PLATELET ESTIMATE NORMAL; SEGMENTED NEUTROPHILS (M) % 73 % (39-77); SMUDGE%M 5 % (0-0)
[2017-10-23] MEDS ORDERED: MIDAZOLAM 1 MG/ML 2 ML INJ IV (11:30)
[2017-10-23] MEDS ORDERED: ONDANSETRON 4 MG INJ IV (11:30)
[2017-10-23] MEDS ORDERED: METOCLOPRAMIDE 10 MG INJ IV (11:30)
[2017-10-23] MEDS ORDERED: hydrALAzine 20 MG INJ IV (11:30)
[2017-10-23] MEDS ORDERED: OXYCODONE/ACETAMINOPHEN (5/325) TAB PO ×2 (11:30)
[2017-10-23] MEDS ORDERED: MEPERIDINE 25 MG INJ IV (11:30)
[2017-10-23] MEDS ORDERED: DIPHENHYDRAMINE 50 MG INJ IV (11:30)
[2017-10-23] MEDS ORDERED: FENTAnyl 50 MCG/ML VIAL IV (11:30)
[2017-10-23] MEDS ORDERED: EPHEDrine SULFATE 50 MG/5 ML SYG IV (11:30)
[2017-10-23] MEDS ORDERED: LABETALOL HCL 20MG INJ IV (11:30)
[2017-10-23] MEDS: DEXTROSE 5%-0.45% NACL 1,000 ML IV (13:13)
[2017-10-23] MEDS: INSULIN GLARGINE [LANtus] 3 ML PEN SC (20:11)
[2017-10-23 22:18] LABS: VANCOMYCIN,TROUGH 11.1 ug/ml (10.0-20.0)
[2017-10-24] MEDS: INSULIN ASPART [NOVOLOG] 3 ML PEN SC ×6 (01:28→20:40)
[2017-10-24] MEDS: METOCLOPRAMIDE 10 MG INJ IV ×3 (05:18→17:33)
[2017-10-24] MEDS: PANTOPRAZOLE 40 MG INJ IV (05:18)
[2017-10-24] MEDS: VANCOMYCIN 750 MG in DEXTROSE 5% 150 ML IVPB ×3 (05:19→22:30)
[2017-10-24] MEDS: PIPER-TAZO 3.375 GM IV (PMX) 100 ML IVPB ×3 (05:25→23:33)
[2017-10-24 08:16] LABS: ADD MAN DIFF? NO
[2017-10-24 08:24] LABS: BASOPHILS % 0.3 % (0.0-2.0); EOSINOPHILS # 0.3 10^3/ul (0.0-0.5); EOSINOPHILS % 2.1 % (0.0-7.0); HEMATOCRIT 26.2 % (42.0-52.0); HEMOGLOBIN 8.9 g/dl (14.0-18.0); LYMPHOCYTES # 1.7 10^3/ul (0.8-2.9); MEAN CORPUSCULAR HEMOGLOBIN 29.3 pg (29.0-33.0); MEAN CORPUSCULAR VOLUME 86.2 fl (82.0-101.0); MEAN PLATELET VOLUME 8.8 fl (7.4-10.4); MONOCYTE # 1.1 10^3/ul (0.3-0.9); MONOCYTES % 8.6 % (0.0-11.0); NEUTROPHIL # 9.4 10^3/ul (1.6-7.5); NEUTROPHILS % 72.1 % (39.0-77.0); PLATELET COUNT 559 10^3/UL (140-415); RED BLOOD COUNT 3.04 10^6/ul (4.70-6.10); RED CELL DISTRIBUTION WIDTH 13.5 % (11.5-14.5)
[2017-10-24 08:43] LABS: MAGNESIUM 1.7 mg/dl (1.7-2.5)
[2017-10-24 08:43] LABS: PHOSPHORUS 3.3 mg/dl (2.5-4.9)
[2017-10-24 08:46] LABS: ANION GAP 9 (8-16); BLOOD UREA NITROGEN 11 mg/dl (7-20); CALCIUM 7.9 mg/dl (8.4-10.2); CARBON DIOXIDE 31 mmol/L (21-31); CHLORIDE 106 mmol/L (97-110); CREATININE 0.44 mg/dl (0.61-1.24); GLUCOSE 165 mg/dl (70-220); SODIUM 143 mmol/L (135-144)
[2017-10-24 09:03] LABS: POTASSIUM 2.9 mmol/L (3.5-5.1)
[2017-10-24] MEDS: DIATR MEGLU/DIATRIZOATE SODIUM 120 ML BTL (09:30)
[2017-10-24] MEDS: LEVETIRACETAM 500 MG (PMX) 100 ML IVPB ×2 (09:50→20:50)
[2017-10-24] MEDS: hydrALAzine 20 MG INJ IV (09:50)
[2017-10-24] MEDS: DOCUSATE SODIUM 10 MG/ML (10ML CUP) GTB ×2 (10:28→20:24)
[2017-10-24] MEDS: LABETALOL 100 MG TAB GTB ×2 (10:29→20:25)
[2017-10-24] MEDS: AMLODIPINE 10 MG TAB GTB (10:29)
[2017-10-24] MEDS: POTASSIUM CHLORIDE 20 MEQ POWDER FOR ORAL SOLN NGT (10:32)
[2017-10-24] MEDS: POTASSIUM CHLORIDE 100 ML IVPB ×2 (10:59→13:10)
[2017-10-24] MEDS: INSULIN GLARGINE [LANtus] 3 ML PEN SC (20:40)
[2017-10-24 21:02] LABS: POTASSIUM 3.7 mmol/L (3.5-5.1)
[2017-10-25] MEDS: METOCLOPRAMIDE 10 MG INJ IV ×4 (00:05→17:19)
[2017-10-25] MEDS: morphine LIQ (10 MG/5 ML) CUP GTB (00:05)
[2017-10-25] MEDS: INSULIN ASPART [NOVOLOG] 3 ML PEN SC ×6 (01:00→21:00)
[2017-10-25] MEDS: VANCOMYCIN 750 MG in DEXTROSE 5% 150 ML IVPB ×3 (05:00→22:03)
[2017-10-25] MEDS: PANTOPRAZOLE 40 MG INJ IV (05:43)
[2017-10-25] MEDS: hydrALAzine 20 MG INJ IV ×2 (05:44→16:14)
[2017-10-25] MEDS: PIPER-TAZO 3.375 GM IV (PMX) 100 ML IVPB ×3 (06:12→22:02)
[2017-10-25 08:27] LABS: ADD MAN DIFF? NO
[2017-10-25] MEDS: DOCUSATE SODIUM 10 MG/ML (10ML CUP) GTB ×2 (08:27→22:00)
[2017-10-25] MEDS: AMLODIPINE 10 MG TAB GTB (08:27)
[2017-10-25] MEDS: LABETALOL 100 MG TAB GTB ×2 (08:27→22:02)
[2017-10-25] MEDS: DEXTROSE 5%-0.45% NACL 1,000 ML IV ×2 (08:33→20:29)
[2017-10-25] MEDS: LEVETIRACETAM 500 MG (PMX) 100 ML IVPB ×2 (08:33→22:03)
[2017-10-25 08:34] LABS: WHITE BLOOD COUNT 12.1 10^3/ul (4.8-10.8)
[2017-10-25 08:34] LABS: BASOPHILS % 0.2 % (0.0-2.0); EOSINOPHILS # 0.3 10^3/ul (0.0-0.5); EOSINOPHILS % 2.2 % (0.0-7.0); HEMATOCRIT 25.8 % (42.0-52.0); HEMOGLOBIN 8.9 g/dl (14.0-18.0); LYMPHOCYTES # 1.6 10^3/ul (0.8-2.9); LYMPHOCYTES % 13.4 % (15.0-51.0); MEAN CORPUSCULAR HEMOGLOBIN 30.2 pg (29.0-33.0); MEAN CORPUSCULAR HGB CONC 34.5 g/dl (32.0-37.0); MEAN CORPUSCULAR VOLUME 87.5 fl (82.0-101.0); MEAN PLATELET VOLUME 8.6 fl (7.4-10.4); MONOCYTE # 0.8 10^3/ul (0.3-0.9); MONOCYTES % 6.9 % (0.0-11.0); PLATELET COUNT 523 10^3/UL (140-415); RED BLOOD COUNT 2.95 10^6/ul (4.70-6.10); RED CELL DISTRIBUTION WIDTH 13.3 % (11.5-14.5)
[2017-10-25 08:53] LABS: ANION GAP 10 (8-16); BLOOD UREA NITROGEN 9 mg/dl (7-20); CALCIUM 8.1 mg/dl (8.4-10.2); CARBON DIOXIDE 27 mmol/L (21-31); CHLORIDE 106 mmol/L (97-110); CREATININE 0.49 mg/dl (0.61-1.24); GLUCOSE 131 mg/dl (70-220); POTASSIUM 3.2 mmol/L (3.5-5.1); SODIUM 140 mmol/L (135-144)
[2017-10-25 09:06] LABS: PHOSPHORUS 3.6 mg/dl (2.5-4.9)
[2017-10-25 09:06] LABS: MAGNESIUM 1.7 mg/dl (1.7-2.5)
[2017-10-25] MEDS: POTASSIUM CHLORIDE 100 ML IVPB ×2 (17:19→20:28)
[2017-10-25] MEDS: DIATR MEGLU/DIATRIZOATE SODIUM 120 ML BTL (21:23)
[2017-10-25] MEDS: INSULIN GLARGINE [LANtus] 3 ML PEN SC (22:10)
[2017-10-26] MEDS: METOCLOPRAMIDE 10 MG INJ IV ×5 (00:56→23:27)
[2017-10-26] MEDS: hydrALAzine 20 MG INJ IV (00:56)
[2017-10-26] MEDS: INSULIN ASPART [NOVOLOG] 3 ML PEN SC ×6 (00:56→21:58)
[2017-10-26] MEDS: morphine LIQ (10 MG/5 ML) CUP GTB ×2 (05:19→21:34)
[2017-10-26] MEDS: PANTOPRAZOLE 40 MG INJ IV (05:19)
[2017-10-26] MEDS: VANCOMYCIN 750 MG in DEXTROSE 5% 150 ML IVPB ×3 (05:20→21:36)
[2017-10-26] MEDS: PIPER-TAZO 3.375 GM IV (PMX) 100 ML IVPB ×3 (05:21→21:36)
[2017-10-26 08:49] LABS: ADD MAN DIFF? NO
[2017-10-26 08:53] LABS: BASOPHILS % 0.3 % (0.0-2.0); EOSINOPHILS # 0.2 10^3/ul (0.0-0.5); EOSINOPHILS % 2.5 % (0.0-7.0); HEMATOCRIT 24.5 % (42.0-52.0); LYMPHOCYTES # 1.3 10^3/ul (0.8-2.9); LYMPHOCYTES % 14.6 % (15.0-51.0); MEAN CORPUSCULAR HEMOGLOBIN 28.8 pg (29.0-33.0); MEAN CORPUSCULAR HGB CONC 32.7 g/dl (32.0-37.0); MEAN CORPUSCULAR VOLUME 88.1 fl (82.0-101.0); MEAN PLATELET VOLUME 8.6 fl (7.4-10.4); MONOCYTE # 0.7 10^3/ul (0.3-0.9); MONOCYTES % 7.8 % (0.0-11.0); NEUTROPHIL # 6.5 10^3/ul (1.6-7.5); NEUTROPHILS % 72.6 % (39.0-77.0); PLATELET COUNT 467 10^3/UL (140-415); RED BLOOD COUNT 2.78 10^6/ul (4.70-6.10); RED CELL DISTRIBUTION WIDTH 13.3 % (11.5-14.5)
[2017-10-26 08:53] LABS: WHITE BLOOD COUNT 8.9 10^3/ul (4.8-10.8)
[2017-10-26] MEDS: DOCUSATE SODIUM 10 MG/ML (10ML CUP) GTB ×2 (09:00→21:00)
[2017-10-26 09:15] LABS: MAGNESIUM 1.8 mg/dl (1.7-2.5)
[2017-10-26 09:19] LABS: ALANINE AMINOTRANSFERASE 24 IU/L (13-69); ALBUMIN 2.2 g/dl (3.3-4.9); ALBUMIN/GLOBULIN RATIO 0.68; ALKALINE PHOSPHATASE 62 IU/L (42-121); ANION GAP 7 (8-16); ASPARTATE AMINO TRANSFERASE 29 IU/L (15-46); BILIRUBIN,INDIRECT 0.2 mg/dl (0-1.1); BILIRUBIN,TOTAL 0.2 mg/dl (0.2-1.3); BLOOD UREA NITROGEN 7 mg/dl (7-20); CARBON DIOXIDE 27 mmol/L (21-31); CHLORIDE 106 mmol/L (97-110); CREATININE 0.44 mg/dl (0.61-1.24); GLUCOSE 136 mg/dl (70-220); POTASSIUM 3.2 mmol/L (3.5-5.1); SODIUM 137 mmol/L (135-144); TOTAL PROTEIN 5.4 g/dl (6.1-8.1)
[2017-10-26] MEDS: DEXTROSE 5%-0.45% NACL 1,000 ML IV ×2 (09:35→21:39)
[2017-10-26] MEDS: LEVETIRACETAM 500 MG (PMX) 100 ML IVPB ×2 (09:38→21:37)
[2017-10-26] MEDS: AMLODIPINE 10 MG TAB GTB (10:02)
[2017-10-26] MEDS: LABETALOL 100 MG TAB GTB ×2 (10:04→21:35)
[2017-10-26] MEDS: POTASSIUM CHLORIDE 100 ML IVPB ×2 (21:37→23:27)
[2017-10-26] MEDS: INSULIN GLARGINE [LANtus] 3 ML PEN SC (22:01)
[2017-10-26 22:23] LABS: VANCOMYCIN,TROUGH 22.9 ug/ml (10.0-20.0)
[2017-10-27] MEDS: INSULIN ASPART [NOVOLOG] 3 ML PEN SC ×6 (00:52→21:21)
[2017-10-27] MEDS: VANCOMYCIN 750 MG in DEXTROSE 5% 150 ML IVPB ×2 (03:16→15:20)
[2017-10-27] MEDS: METOCLOPRAMIDE 10 MG INJ IV ×4 (06:32→23:56)
[2017-10-27] MEDS: PANTOPRAZOLE 40 MG INJ IV (06:32)
[2017-10-27] MEDS: PIPER-TAZO 3.375 GM IV (PMX) 100 ML IVPB ×3 (06:33→22:05)
[2017-10-27 07:01] LABS: ADD MAN DIFF? NO
[2017-10-27 07:04] LABS: BASOPHILS % 0.3 % (0.0-2.0); EOSINOPHILS # 0.2 10^3/ul (0.0-0.5); EOSINOPHILS % 1.8 % (0.0-7.0); HEMATOCRIT 27.4 % (42.0-52.0); HEMOGLOBIN 9.3 g/dl (14.0-18.0); LYMPHOCYTES # 1.2 10^3/ul (0.8-2.9); LYMPHOCYTES % 10.5 % (15.0-51.0); MEAN CORPUSCULAR HEMOGLOBIN 29.5 pg (29.0-33.0); MEAN CORPUSCULAR HGB CONC 33.9 g/dl (32.0-37.0); MEAN PLATELET VOLUME 8.8 fl (7.4-10.4); MONOCYTE # 0.9 10^3/ul (0.3-0.9); MONOCYTES % 8.2 % (0.0-11.0); NEUTROPHIL # 8.5 10^3/ul (1.6-7.5); NEUTROPHILS % 77.6 % (39.0-77.0); PLATELET COUNT 532 10^3/UL (140-415); RED BLOOD COUNT 3.15 10^6/ul (4.70-6.10); RED CELL DISTRIBUTION WIDTH 13.8 % (11.5-14.5)
[2017-10-27 07:04] LABS: WHITE BLOOD COUNT 10.9 10^3/ul (4.8-10.8)
[2017-10-27 07:30] LABS: ANION GAP 12 (8-16); BLOOD UREA NITROGEN 8 mg/dl (7-20); CARBON DIOXIDE 25 mmol/L (21-31); CHLORIDE 101 mmol/L (97-110); CREATININE 0.49 mg/dl (0.61-1.24); GLUCOSE 232 mg/dl (70-220); POTASSIUM 3.9 mmol/L (3.5-5.1); SODIUM 134 mmol/L (135-144)
[2017-10-27] MEDS: DOCUSATE SODIUM 10 MG/ML (10ML CUP) GTB ×2 (08:13→20:21)
[2017-10-27] MEDS: LEVETIRACETAM 500 MG (PMX) 100 ML IVPB ×2 (08:17→20:28)
[2017-10-27] MEDS: AMLODIPINE 10 MG TAB GTB (08:19)
[2017-10-27] MEDS: LABETALOL 100 MG TAB GTB ×2 (08:20→20:21)
[2017-10-27 08:30] LABS: HEMOGLOBIN A1C 8.3 % (0-5.9)
[2017-10-27] MEDS: DEXTROSE 5%-0.45% NACL 1,000 ML IV ×2 (08:35→23:26)
[2017-10-27] MEDS: hydrALAzine 20 MG INJ IV (16:07)
[2017-10-27] MEDS: INSULIN GLARGINE [LANtus] 3 ML PEN SC (20:27)
[2017-10-27] MEDS: morphine LIQ (10 MG/5 ML) CUP GTB (22:08)
[2017-10-28] MEDS: INSULIN ASPART [NOVOLOG] 3 ML PEN SC ×6 (01:00→20:15)
[2017-10-28] MEDS: VANCOMYCIN 750 MG in DEXTROSE 5% 150 ML IVPB ×2 (02:07→15:46)
[2017-10-28] MEDS: PIPER-TAZO 3.375 GM IV (PMX) 100 ML IVPB ×3 (05:36→21:33)
[2017-10-28] MEDS: PANTOPRAZOLE 40 MG INJ IV (05:37)
[2017-10-28] MEDS: METOCLOPRAMIDE 10 MG INJ IV ×4 (06:12→23:35)
[2017-10-28 06:51] LABS: ADD MAN DIFF? NO
[2017-10-28 07:07] LABS: WHITE BLOOD COUNT 11.6 10^3/ul (4.8-10.8)
[2017-10-28 07:07] LABS: BASOPHILS % 0.3 % (0.0-2.0); EOSINOPHILS # 0.1 10^3/ul (0.0-0.5); EOSINOPHILS % 1.2 % (0.0-7.0); HEMATOCRIT 28.5 % (42.0-52.0); HEMOGLOBIN 9.8 g/dl (14.0-18.0); LYMPHOCYTES # 1.3 10^3/ul (0.8-2.9); LYMPHOCYTES % 11.1 % (15.0-51.0); MEAN CORPUSCULAR HEMOGLOBIN 30.2 pg (29.0-33.0); MEAN CORPUSCULAR HGB CONC 34.4 g/dl (32.0-37.0); MEAN PLATELET VOLUME 8.7 fl (7.4-10.4); MONOCYTES % 8.2 % (0.0-11.0); NEUTROPHIL # 9.1 10^3/ul (1.6-7.5); PLATELET COUNT 538 10^3/UL (140-415); RED BLOOD COUNT 3.24 10^6/ul (4.70-6.10); RED CELL DISTRIBUTION WIDTH 13.8 % (11.5-14.5)
[2017-10-28 07:23] LABS: ANION GAP 5 (8-16); BLOOD UREA NITROGEN 6 mg/dl (7-20); CALCIUM 8.3 mg/dl (8.4-10.2); CARBON DIOXIDE 30 mmol/L (21-31); CHLORIDE 103 mmol/L (97-110); CREATININE 0.57 mg/dl (0.61-1.24); GLUCOSE 145 mg/dl (70-220); POTASSIUM 3.1 mmol/L (3.5-5.1); SODIUM 135 mmol/L (135-144)
[2017-10-28] MEDS: LEVETIRACETAM 500 MG (PMX) 100 ML IVPB ×2 (08:17→20:12)
[2017-10-28] MEDS: DOCUSATE SODIUM 10 MG/ML (10ML CUP) GTB ×2 (08:17→20:11)
[2017-10-28] MEDS: AMLODIPINE 10 MG TAB GTB (08:18)
[2017-10-28] MEDS: LABETALOL 100 MG TAB GTB ×2 (08:18→20:12)
[2017-10-28] MEDS ORDERED: POTASSIUM CHLORIDE 50 ML IVPB (14:30)
[2017-10-28] MEDS: POTASSIUM CHLORIDE 20 MEQ /SW 100 ML IVPB ×2 (14:38→16:59)
[2017-10-28] MEDS: INSULIN GLARGINE [LANtus] 3 ML PEN SC (20:15)
[2017-10-28] MEDS: morphine LIQ (10 MG/5 ML) CUP GTB (21:32)
[2017-10-29] MEDS: INSULIN ASPART [NOVOLOG] 3 ML PEN SC ×6 (00:51→20:28)
[2017-10-29 02:20] LABS: ADD MAN DIFF? NO
[2017-10-29 02:23] LABS: BASOPHILS % 0.3 % (0.0-2.0); EOSINOPHILS # 0.1 10^3/ul (0.0-0.5); EOSINOPHILS % 1.1 % (0.0-7.0); HEMATOCRIT 25.2 % (42.0-52.0); HEMOGLOBIN 8.4 g/dl (14.0-18.0); LYMPHOCYTES # 1.4 10^3/ul (0.8-2.9); MEAN CORPUSCULAR HEMOGLOBIN 29.5 pg (29.0-33.0); MEAN CORPUSCULAR HGB CONC 33.3 g/dl (32.0-37.0); MEAN CORPUSCULAR VOLUME 88.4 fl (82.0-101.0); MEAN PLATELET VOLUME 8.4 fl (7.4-10.4); MONOCYTES % 8.3 % (0.0-11.0); NEUTROPHILS % 77.5 % (39.0-77.0); PLATELET COUNT 424 10^3/UL (140-415); RED BLOOD COUNT 2.85 10^6/ul (4.70-6.10); RED CELL DISTRIBUTION WIDTH 14.2 % (11.5-14.5)
[2017-10-29 02:23] LABS: WHITE BLOOD COUNT 11.7 10^3/ul (4.8-10.8)
[2017-10-29 02:40] LABS: ANION GAP 7 (8-16); BLOOD UREA NITROGEN 8 mg/dl (7-20); CALCIUM 8.3 mg/dl (8.4-10.2); CARBON DIOXIDE 28 mmol/L (21-31); CHLORIDE 104 mmol/L (97-110); CREATININE 0.58 mg/dl (0.61-1.24); GLUCOSE 124 mg/dl (70-220); POTASSIUM 3.3 mmol/L (3.5-5.1); SODIUM 136 mmol/L (135-144)
[2017-10-29 02:45] LABS: VANCOMYCIN,TROUGH 11.3 ug/ml (10.0-20.0)
[2017-10-29] MEDS: VANCOMYCIN 750 MG in DEXTROSE 5% 150 ML IVPB ×2 (02:54→14:42)
[2017-10-29 02:58] LABS: MAGNESIUM 1.9 mg/dl (1.7-2.5)
[2017-10-29] MEDS: hydrALAzine 20 MG INJ IV ×2 (05:04→16:21)
[2017-10-29] MEDS: PANTOPRAZOLE 40 MG INJ IV (05:17)
[2017-10-29] MEDS: METOCLOPRAMIDE 10 MG INJ IV ×3 (05:17→17:27)
[2017-10-29] MEDS: PIPER-TAZO 3.375 GM IV (PMX) 100 ML IVPB ×2 (05:17→13:29)
[2017-10-29] MEDS: morphine LIQ (10 MG/5 ML) CUP GTB (06:30)
[2017-10-29] MEDS: AMLODIPINE 10 MG TAB GTB (08:54)
[2017-10-29] MEDS: LEVETIRACETAM 500 MG (PMX) 100 ML IVPB (08:54)
[2017-10-29] MEDS: DOCUSATE SODIUM 10 MG/ML (10ML CUP) GTB ×2 (08:54→20:24)
[2017-10-29] MEDS: LABETALOL 100 MG TAB GTB ×2 (08:55→20:25)
[2017-10-29] MEDS: POTASSIUM CHLORIDE 20 MEQ POWDER FOR ORAL SOLN PO (10:45)
[2017-10-29] MEDS: FLUCONAZOLE 100 MG TAB PO (16:21)
[2017-10-29] MEDS: CIPROFLOXACIN 500 MG TAB PO (17:27)
[2017-10-29] MEDS: NYSTATIN 15 GM OINT TOP (20:25)
[2017-10-29] MEDS: INSULIN GLARGINE [LANtus] 3 ML PEN SC (20:29)
[2017-10-29] MEDS: LEVETIRACETAM (100 MG/ML) 5ML CUP GTB (22:29)
[2017-10-30] MEDS: ONDANSETRON 4 MG INJ IV (01:07)
[2017-10-30] MEDS: INSULIN ASPART [NOVOLOG] 3 ML PEN SC ×6 (01:16→21:08)
[2017-10-30] MEDS: METOCLOPRAMIDE 10 MG INJ IV ×4 (01:17→17:35)
[2017-10-30] MEDS: CIPROFLOXACIN 500 MG TAB PO ×2 (05:40→20:59)
[2017-10-30] MEDS: PANTOPRAZOLE 40 MG INJ IV (05:41)
[2017-10-30 06:46] LABS: ADD MAN DIFF? NO
[2017-10-30 06:51] LABS: WHITE BLOOD COUNT 10.7 10^3/ul (4.8-10.8)
[2017-10-30 06:51] LABS: BASOPHIL # 0.1 10^3/ul (0.0-0.1); BASOPHILS % 0.5 % (0.0-2.0); EOSINOPHILS # 0.1 10^3/ul (0.0-0.5); EOSINOPHILS % 0.8 % (0.0-7.0); HEMATOCRIT 26.1 % (42.0-52.0); LYMPHOCYTES # 1.4 10^3/ul (0.8-2.9); LYMPHOCYTES % 12.7 % (15.0-51.0); MEAN CORPUSCULAR HEMOGLOBIN 30.6 pg (29.0-33.0); MEAN CORPUSCULAR HGB CONC 34.5 g/dl (32.0-37.0); MEAN CORPUSCULAR VOLUME 88.8 fl (82.0-101.0); MEAN PLATELET VOLUME 8.6 fl (7.4-10.4); MONOCYTES % 9.7 % (0.0-11.0); NEUTROPHILS % 75.4 % (39.0-77.0); PLATELET COUNT 432 10^3/UL (140-415); RED BLOOD COUNT 2.94 10^6/ul (4.70-6.10); RED CELL DISTRIBUTION WIDTH 14.5 % (11.5-14.5)
[2017-10-30 07:12] LABS: MAGNESIUM 1.8 mg/dl (1.7-2.5)
[2017-10-30 07:12] LABS: PHOSPHORUS 3.4 mg/dl (2.5-4.9)
[2017-10-30 07:13] LABS: ANION GAP 9 (8-16); BLOOD UREA NITROGEN 9 mg/dl (7-20); CALCIUM 8.5 mg/dl (8.4-10.2); CARBON DIOXIDE 27 mmol/L (21-31); CHLORIDE 102 mmol/L (97-110); CREATININE 0.55 mg/dl (0.61-1.24); GLUCOSE 114 mg/dl (70-220); POTASSIUM 3.2 mmol/L (3.5-5.1); SODIUM 135 mmol/L (135-144)
[2017-10-30] MEDS: LABETALOL 100 MG TAB GTB ×2 (08:22→21:00)
[2017-10-30] MEDS: LEVETIRACETAM (100 MG/ML) 5ML CUP GTB ×2 (08:30→20:59)
[2017-10-30] MEDS: DOCUSATE SODIUM 10 MG/ML (10ML CUP) GTB ×2 (08:30→20:59)
[2017-10-30] MEDS: FLUCONAZOLE 100 MG TAB PO (08:31)
[2017-10-30] MEDS: AMLODIPINE 10 MG TAB GTB (08:31)
[2017-10-30] MEDS: NYSTATIN 15 GM OINT TOP (09:00)
[2017-10-30] MEDS: POTASSIUM CHLORIDE 100 ML IVPB ×2 (12:48→17:35)
[2017-10-30] MEDS ORDERED: MIDAZOLAM 1 MG/ML 2 ML INJ (14:55)
[2017-10-30] MEDS ORDERED: LIDOCAINE 2% (SDV) 5 ML INJ (15:30)
[2017-10-30] MEDS ORDERED: ETOMIDATE 20 MG INJ (15:30)
[2017-10-30] MEDS ORDERED: HYDROmorphONE 1 MG/5 ML IV SYRINGE IV ×2 (16:00)
[2017-10-30] MEDS ORDERED: hydrALAzine 20 MG INJ IV (16:00)
[2017-10-30] MEDS ORDERED: FENTAnyl 50 MCG/ML VIAL IV (16:00)
[2017-10-30] MEDS ORDERED: DIPHENHYDRAMINE 50 MG INJ IV (16:00)
[2017-10-30] MEDS ORDERED: ONDANSETRON 4 MG INJ IV (16:00)
[2017-10-30] MEDS ORDERED: LABETALOL HCL 20MG INJ IV (16:00)
[2017-10-30] MEDS: morphine LIQ (10 MG/5 ML) CUP GTB (20:59)
[2017-10-30] MEDS: INSULIN GLARGINE [LANtus] 3 ML PEN SC (21:09)
[2017-10-30] MEDS: LORAZEPAM 2 MG INJ IV (23:04)
[2017-10-31] MEDS: METOCLOPRAMIDE 10 MG INJ IV ×4 (00:46→18:52)
[2017-10-31] MEDS: NYSTATIN 15 GM OINT TOP ×3 (00:46→21:58)
[2017-10-31] MEDS: INSULIN ASPART [NOVOLOG] 3 ML PEN SC ×6 (01:00→21:00)
[2017-10-31] MEDS: hydrALAzine 20 MG INJ IV (02:02)
[2017-10-31] MEDS ORDERED: FUROSEMIDE 40 MG INJ (04:03)
[2017-10-31 04:30] LABS: AADO2 Arterial 441.1 mmHg (7.0-24.0); Arterial Base Excess 1.1 mmol/L (-3.0-3); Arterial Blood Gas Oxygen Sat 99.3 mmHG (95.0-98.0); Arterial COHb 0.4 % (0.0-3.0); Arterial Fraction of Oxyhgb 98.8 % (93.0-99.0); Arterial HCO3 26.2 mmol/L (22.0-26.0); Arterial MetHb 0.1 % (0.0-1.5); Arterial Total Hemglobin 11.3 g/dl (12.0-18.0); Arterial pCO2 43.2 mmhg (35-45); MODE MASK - NRB; Site LB
[2017-10-31] MEDS: FUROSEMIDE 40 MG INJ IV (04:30)
[2017-10-31] MEDS: PANTOPRAZOLE 40 MG INJ IV (06:02)
[2017-10-31] MEDS: CIPROFLOXACIN 500 MG TAB PO ×2 (06:02→18:52)
[2017-10-31 06:07] LABS: ABNORMAL IP MESSAGE 1; HEMOGLOBIN 10.4 g/dl (14.0-18.0); MEAN CORPUSCULAR HEMOGLOBIN 29.9 pg (29.0-33.0); MEAN CORPUSCULAR HGB CONC 33.5 g/dl (32.0-37.0); MEAN CORPUSCULAR VOLUME 89.1 fl (82.0-101.0); MEAN PLATELET VOLUME 8.8 fl (7.4-10.4); PLATELET COUNT 501 10^3/UL (140-415); POSITIVE DIFF @See below; RED BLOOD COUNT 3.48 10^6/ul (4.70-6.10); RED CELL DISTRIBUTION WIDTH 14.8 % (11.5-14.5)
[2017-10-31 06:07] LABS: WHITE BLOOD COUNT 25.8 10^3/ul (4.8-10.8)
[2017-10-31 06:25] LABS: PHOSPHORUS 3.6 mg/dl (2.5-4.9)
[2017-10-31 06:25] LABS: MAGNESIUM 1.5 mg/dl (1.7-2.5)
[2017-10-31 06:27] LABS: ADD UMIC NO; UR ASCORBIC ACID NEGATIVE (NEGATIVE); UR BILIRUBIN (Dip) NEGATIVE (NEGATIVE); UR BLOOD (Dip) NEGATIVE (NEGATIVE); UR CLARITY CLEAR (CLEAR); UR COLOR STRAW (YELLOW); UR GLUCOSE (Dip) NEGATIVE (NEGATIVE); UR KETONES (Dip) TRACE mg/dL (NEGATIVE); UR LEUKOCYTE ESTERASE (Dip) NEGATIVE Leu/ul (NEGATIVE); UR NITRITE (Dip) NEGATIVE (NEGATIVE); UR SPECIFIC GRAVITY (Dip) 1.008 (1.003-1.030); UR TOTAL PROTEIN (Dip) NEGATIVE (NEGATIVE); UR UROBILINOGEN (Dip) NEGATIVE (NEGATIVE)
[2017-10-31 06:35] LABS: ADD MAN DIFF? YES
[2017-10-31 06:37] LABS: ANION GAP 11 (8-16); BLOOD UREA NITROGEN 10 mg/dl (7-20); CALCIUM 8.9 mg/dl (8.4-10.2); CARBON DIOXIDE 28 mmol/L (21-31); CHLORIDE 99 mmol/L (97-110); CREATININE 0.58 mg/dl (0.61-1.24); GLUCOSE 203 mg/dl (70-220); POTASSIUM 3.5 mmol/L (3.5-5.1); SODIUM 134 mmol/L (135-144)
[2017-10-31] MEDS ORDERED: FUROSEMIDE 20 MG INJ (07:00)
[2017-10-31] MEDS ORDERED: METOPROLOL 5 MG INJ (07:00)
[2017-10-31 08:52] LABS: ANISOCYTOSIS 1+ (0-0); BAND NEUTROPHILS % (M) 8 % (0-4); HYPOCHROMASIA 1+ (0-0); LYMPHOCYTES % (M) 4 % (15-51); MICROCYTOSIS 1+ (0-0); MONOCYTE #M 0.2 10^3/ul (0.3-0.9); MONOCYTES % (M) 1 % (0-11); PLATELET ESTIMATE INCREASED; SEGMENTED NEUTROPHILS (M) % 87 % (39-77); SMUDGE%M 1 % (0-0)
[2017-10-31] MEDS: LEVETIRACETAM (100 MG/ML) 5ML CUP GTB ×2 (09:00→21:55)
[2017-10-31] MEDS ORDERED: SODIUM HYPOCHLORITE 0.125% 473 ML BTL IRR (09:00)
[2017-10-31] MEDS: LABETALOL 100 MG TAB GTB ×2 (10:47→21:00)
[2017-10-31] MEDS: FLUCONAZOLE 100 MG TAB PO (10:47)
[2017-10-31] MEDS: DOCUSATE SODIUM 10 MG/ML (10ML CUP) GTB ×2 (10:47→21:55)
[2017-10-31] MEDS: AMLODIPINE 10 MG TAB GTB (10:48)
[2017-10-31] MEDS: MEROPENEM 500MG/50 ML (PMX) 50 ML IVPB ×2 (15:52→21:55)
[2017-10-31] MEDS: ALBUTEROL/IPRATROPIUM (NEB) 3 ML AMP HHN ×2 (16:06→19:18)
[2017-10-31] MEDS: MAGNESIUM SULFATE 2 GM/50 ML 50 ML IVPB ×2 (16:34→18:53)
[2017-10-31] MEDS ORDERED: LORAZEPAM 2 MG INJ (17:06)
[2017-10-31] MEDS: INSULIN GLARGINE [LANtus] 3 ML PEN SC (21:57)
[2017-11-01] MEDS: METOCLOPRAMIDE 10 MG INJ IV ×4 (00:05→17:40)
[2017-11-01] MEDS: SODIUM HYPOCHLORITE 0.125% 473 ML BTL IRR ×2 (00:06→08:07)
[2017-11-01] MEDS: INSULIN ASPART [NOVOLOG] 3 ML PEN SC ×6 (01:03→21:16)
[2017-11-01] MEDS: ALBUTEROL/IPRATROPIUM (NEB) 3 ML AMP HHN ×4 (02:07→19:33)
[2017-11-01 05:47] LABS: ADD MAN DIFF? NO
[2017-11-01 05:50] LABS: BASOPHIL # 0.1 10^3/ul (0.0-0.1); BASOPHILS % 0.3 % (0.0-2.0); EOSINOPHILS # 0.2 10^3/ul (0.0-0.5); HEMOGLOBIN 8.3 g/dl (14.0-18.0); LYMPHOCYTES # 1.4 10^3/ul (0.8-2.9); MEAN CORPUSCULAR HGB CONC 33.2 g/dl (32.0-37.0); MEAN CORPUSCULAR VOLUME 90.3 fl (82.0-101.0); MEAN PLATELET VOLUME 9.2 fl (7.4-10.4); MONOCYTE # 1.1 10^3/ul (0.3-0.9); MONOCYTES % 7.2 % (0.0-11.0); NEUTROPHIL # 12.6 10^3/ul (1.6-7.5); NEUTROPHILS % 81.7 % (39.0-77.0); PLATELET COUNT 383 10^3/UL (140-415); RED BLOOD COUNT 2.77 10^6/ul (4.70-6.10); RED CELL DISTRIBUTION WIDTH 15.3 % (11.5-14.5)
[2017-11-01 05:50] LABS: WHITE BLOOD COUNT 15.4 10^3/ul (4.8-10.8)
[2017-11-01] MEDS: CIPROFLOXACIN 500 MG TAB PO ×2 (05:52→17:40)
[2017-11-01] MEDS: PANTOPRAZOLE 40 MG INJ IV (05:55)
[2017-11-01 06:11] LABS: ANION GAP 10 (8-16); BLOOD UREA NITROGEN 13 mg/dl (7-20); CALCIUM 8.8 mg/dl (8.4-10.2); CARBON DIOXIDE 28 mmol/L (21-31); CHLORIDE 99 mmol/L (97-110); GLUCOSE 160 mg/dl (70-220); SODIUM 134 mmol/L (135-144)
[2017-11-01] MEDS: LABETALOL 100 MG TAB GTB ×2 (08:06→21:00)
[2017-11-01] MEDS: AMLODIPINE 10 MG TAB GTB (08:06)
[2017-11-01] MEDS: LEVETIRACETAM (100 MG/ML) 5ML CUP GTB ×2 (08:24→20:58)
[2017-11-01] MEDS: FLUCONAZOLE 100 MG TAB PO (08:24)
[2017-11-01] MEDS: DOCUSATE SODIUM 10 MG/ML (10ML CUP) GTB ×2 (08:24→20:59)
[2017-11-01] MEDS: FUROSEMIDE 40 MG TAB GTB (08:25)
[2017-11-01] MEDS: NYSTATIN 15 GM OINT TOP ×2 (08:25→21:19)
[2017-11-01] MEDS: MEROPENEM 500MG/50 ML (PMX) 50 ML IVPB ×2 (08:25→21:02)
[2017-11-01] MEDS: POTASSIUM CHLORIDE 100 ML IVPB ×2 (11:08→13:28)
[2017-11-01] MEDS: INSULIN GLARGINE [LANtus] 3 ML PEN SC (21:16)
[2017-11-02] MEDS: METOCLOPRAMIDE 10 MG INJ IV ×3 (00:34→12:10)
[2017-11-02] MEDS: INSULIN ASPART [NOVOLOG] 3 ML PEN SC ×6 (00:34→21:15)
[2017-11-02] MEDS: ALBUTEROL/IPRATROPIUM (NEB) 3 ML AMP HHN ×4 (02:23→19:43)
[2017-11-02] MEDS: PANTOPRAZOLE 40 MG INJ IV (05:59)
[2017-11-02 06:06] LABS: ADD MAN DIFF? NO
[2017-11-02 06:10] LABS: BASOPHILS % 0.5 % (0.0-2.0); EOSINOPHILS # 0.1 10^3/ul (0.0-0.5); EOSINOPHILS % 1.5 % (0.0-7.0); HEMATOCRIT 24.9 % (42.0-52.0); HEMOGLOBIN 8.4 g/dl (14.0-18.0); LYMPHOCYTES # 1.5 10^3/ul (0.8-2.9); MEAN CORPUSCULAR HEMOGLOBIN 30.4 pg (29.0-33.0); MEAN CORPUSCULAR HGB CONC 33.7 g/dl (32.0-37.0); MEAN CORPUSCULAR VOLUME 90.2 fl (82.0-101.0); MEAN PLATELET VOLUME 8.9 fl (7.4-10.4); MONOCYTE # 1.2 10^3/ul (0.3-0.9); MONOCYTES % 14.1 % (0.0-11.0); NEUTROPHIL # 5.4 10^3/ul (1.6-7.5); NEUTROPHILS % 65.5 % (39.0-77.0); PLATELET COUNT 368 10^3/UL (140-415); RED BLOOD COUNT 2.76 10^6/ul (4.70-6.10); RED CELL DISTRIBUTION WIDTH 14.9 % (11.5-14.5)
[2017-11-02 06:10] LABS: WHITE BLOOD COUNT 8.2 10^3/ul (4.8-10.8)
[2017-11-02] MEDS: CIPROFLOXACIN 500 MG TAB PO ×2 (06:10→17:08)
[2017-11-02 06:29] LABS: MAGNESIUM 1.6 mg/dl (1.7-2.5)
[2017-11-02 06:30] LABS: ANION GAP 8 (8-16); BLOOD UREA NITROGEN 13 mg/dl (7-20); CALCIUM 8.9 mg/dl (8.4-10.2); CARBON DIOXIDE 33 mmol/L (21-31); CHLORIDE 98 mmol/L (97-110); CREATININE 0.58 mg/dl (0.61-1.24); GLUCOSE 193 mg/dl (70-220); POTASSIUM 3.7 mmol/L (3.5-5.1); SODIUM 135 mmol/L (135-144)
[2017-11-02] MEDS: LEVETIRACETAM (100 MG/ML) 5ML CUP GTB ×2 (08:34→20:56)
[2017-11-02] MEDS: DOCUSATE SODIUM 10 MG/ML (10ML CUP) GTB ×2 (08:34→20:56)
[2017-11-02] MEDS: FLUCONAZOLE 100 MG TAB PO (08:35)
[2017-11-02] MEDS: AMLODIPINE 10 MG TAB GTB (08:35)
[2017-11-02] MEDS: FUROSEMIDE 40 MG TAB GTB (08:35)
[2017-11-02] MEDS: LABETALOL 100 MG TAB GTB ×2 (08:35→20:56)
[2017-11-02] MEDS: MEROPENEM 500MG/50 ML (PMX) 50 ML IVPB ×2 (08:36→20:56)
[2017-11-02] MEDS: NYSTATIN 15 GM OINT TOP ×2 (08:36→20:59)
[2017-11-02] MEDS: SODIUM HYPOCHLORITE 0.125% 473 ML BTL IRR (08:42)
[2017-11-02] MEDS: METOCLOPRAMIDE 10 MG TAB GTB ×2 (13:00→17:08)
[2017-11-02] MEDS: MAGNESIUM CHLORIDE (SR) 64 MG TAB PO (15:56)
[2017-11-02] MEDS: FAMOTIDINE 20 MG TAB GTB (20:55)
[2017-11-02] MEDS: INSULIN GLARGINE [LANtus] 3 ML PEN SC (21:16)
[2017-11-03] MEDS: METOCLOPRAMIDE 10 MG TAB GTB ×4 (00:15→17:09)
[2017-11-03] MEDS: INSULIN ASPART [NOVOLOG] 3 ML PEN SC ×6 (00:24→20:49)
[2017-11-03] MEDS: ALBUTEROL/IPRATROPIUM (NEB) 3 ML AMP HHN ×4 (01:07→20:02)
[2017-11-03] MEDS: CIPROFLOXACIN 500 MG TAB PO ×2 (05:57→17:09)
[2017-11-03] MEDS: LEVETIRACETAM (100 MG/ML) 5ML CUP GTB ×2 (08:23→20:36)
[2017-11-03] MEDS: FUROSEMIDE 40 MG TAB GTB (08:23)
[2017-11-03] MEDS: DOCUSATE SODIUM 10 MG/ML (10ML CUP) GTB ×2 (08:23→20:35)
[2017-11-03] MEDS: FLUCONAZOLE 100 MG TAB PO (08:24)
[2017-11-03] MEDS: FAMOTIDINE 20 MG TAB GTB ×2 (08:24→20:34)
[2017-11-03] MEDS: LABETALOL 100 MG TAB GTB ×2 (08:24→20:35)
[2017-11-03] MEDS: AMLODIPINE 10 MG TAB GTB (08:24)
[2017-11-03] MEDS: SODIUM HYPOCHLORITE 0.125% 473 ML BTL IRR (08:26)
[2017-11-03] MEDS: MEROPENEM 500MG/50 ML (PMX) 50 ML IVPB ×2 (09:35→20:44)
[2017-11-03] MEDS: NYSTATIN 15 GM OINT TOP ×2 (09:36→20:37)
[2017-11-03] MEDS: hydrALAzine 20 MG INJ IV (09:57)
[2017-11-03] MEDS: MAGNESIUM CHLORIDE (SR) 64 MG TAB PO (15:22)
[2017-11-03] MEDS ORDERED: metFORMIN 500 MG TAB GTB (18:00)
[2017-11-03] MEDS: metFORMIN 500 MG TAB GTB (20:34)
[2017-11-03] MEDS: INSULIN GLARGINE [LANtus] 3 ML PEN SC (20:50)
[2017-11-03] MEDS ORDERED: QUETIAPINE 100 MG TAB PO (21:00)
[2017-11-04] MEDS: METOCLOPRAMIDE 10 MG TAB GTB ×4 (00:33→17:55)
[2017-11-04] MEDS: INSULIN ASPART [NOVOLOG] 3 ML PEN SC ×6 (00:38→21:55)
[2017-11-04] MEDS: ALBUTEROL/IPRATROPIUM (NEB) 3 ML AMP HHN ×4 (01:01→20:15)
[2017-11-04] MEDS: CIPROFLOXACIN 500 MG TAB PO ×2 (05:35→17:55)
[2017-11-04 06:45] LABS: ADD MAN DIFF? NO
[2017-11-04 06:50] LABS: BASOPHIL # 0.1 10^3/ul (0.0-0.1); BASOPHILS % 0.7 % (0.0-2.0); EOSINOPHILS # 0.1 10^3/ul (0.0-0.5); EOSINOPHILS % 1.1 % (0.0-7.0); HEMATOCRIT 27.7 % (42.0-52.0); HEMOGLOBIN 9.2 g/dl (14.0-18.0); LYMPHOCYTES # 1.1 10^3/ul (0.8-2.9); LYMPHOCYTES % 12.8 % (15.0-51.0); MEAN CORPUSCULAR HEMOGLOBIN 29.8 pg (29.0-33.0); MEAN CORPUSCULAR HGB CONC 33.2 g/dl (32.0-37.0); MEAN CORPUSCULAR VOLUME 89.6 fl (82.0-101.0); MEAN PLATELET VOLUME 8.8 fl (7.4-10.4); MONOCYTE # 0.9 10^3/ul (0.3-0.9); MONOCYTES % 10.2 % (0.0-11.0); NEUTROPHIL # 6.7 10^3/ul (1.6-7.5); NEUTROPHILS % 74.8 % (39.0-77.0); PLATELET COUNT 386 10^3/UL (140-415); RED BLOOD COUNT 3.09 10^6/ul (4.70-6.10); RED CELL DISTRIBUTION WIDTH 14.3 % (11.5-14.5)
[2017-11-04 06:50] LABS: WHITE BLOOD COUNT 8.9 10^3/ul (4.8-10.8)
[2017-11-04] MEDS: FAMOTIDINE 20 MG TAB GTB ×2 (08:18→21:51)
[2017-11-04] MEDS: DOCUSATE SODIUM 10 MG/ML (10ML CUP) GTB ×2 (08:18→21:50)
[2017-11-04] MEDS: LEVETIRACETAM (100 MG/ML) 5ML CUP GTB ×2 (08:18→21:50)
[2017-11-04] MEDS: metFORMIN 500 MG TAB GTB ×2 (08:19→21:51)
[2017-11-04] MEDS: MEROPENEM 500MG/50 ML (PMX) 50 ML IVPB (08:19)
[2017-11-04] MEDS: FUROSEMIDE 40 MG TAB GTB (08:19)
[2017-11-04] MEDS: FLUCONAZOLE 100 MG TAB PO (08:19)
[2017-11-04] MEDS: MAGNESIUM/AMINO ACIDS TAB GTB (08:20)
[2017-11-04] MEDS: AMLODIPINE 10 MG TAB GTB (08:20)
[2017-11-04] MEDS: LABETALOL 100 MG TAB GTB ×2 (08:20→21:00)
[2017-11-04] MEDS: SODIUM HYPOCHLORITE 0.125% 473 ML BTL IRR (08:21)
[2017-11-04] MEDS: NYSTATIN 15 GM OINT TOP ×2 (08:21→21:51)
[2017-11-04] MEDS: INSULIN GLARGINE [LANtus] 3 ML PEN SC (21:56)
[2017-11-05] MEDS: METOCLOPRAMIDE 10 MG TAB GTB ×4 (00:06→17:19)
[2017-11-05] MEDS: INSULIN ASPART [NOVOLOG] 3 ML PEN SC ×6 (00:07→20:19)
[2017-11-05] MEDS: ALBUTEROL/IPRATROPIUM (NEB) 3 ML AMP HHN ×4 (02:01→19:59)
[2017-11-05] MEDS: CIPROFLOXACIN 500 MG TAB PO (06:09)
[2017-11-05] MEDS: LEVETIRACETAM (100 MG/ML) 5ML CUP GTB ×2 (08:45→20:15)
[2017-11-05] MEDS: DOCUSATE SODIUM 10 MG/ML (10ML CUP) GTB ×2 (08:45→20:15)
[2017-11-05] MEDS: MAGNESIUM/AMINO ACIDS TAB GTB (08:46)
[2017-11-05] MEDS: FLUCONAZOLE 100 MG TAB PO (08:47)
[2017-11-05] MEDS: AMLODIPINE 10 MG TAB GTB (08:47)
[2017-11-05] MEDS: LABETALOL 100 MG TAB GTB ×2 (08:47→20:16)
[2017-11-05] MEDS: FAMOTIDINE 20 MG TAB GTB ×2 (08:47→20:15)
[2017-11-05] MEDS: FUROSEMIDE 40 MG TAB GTB (08:48)
[2017-11-05] MEDS: metFORMIN 500 MG TAB GTB ×2 (08:48→20:16)
[2017-11-05] MEDS: SODIUM HYPOCHLORITE 0.125% 473 ML BTL IRR (08:49)
[2017-11-05] MEDS: NYSTATIN 15 GM OINT TOP ×2 (08:49→20:19)
[2017-11-05] MEDS: INSULIN GLARGINE [LANtus] 3 ML PEN SC (20:18)
[2017-11-05] MEDS: ONDANSETRON 4 MG INJ IV (20:49)
[2017-11-06] MEDS: ACETAMINOPHEN 650MG/20.3ML CUP GTB (00:07)
[2017-11-06] MEDS: METOCLOPRAMIDE 10 MG TAB GTB ×4 (00:08→17:58)
[2017-11-06] MEDS: INSULIN ASPART [NOVOLOG] 3 ML PEN SC ×6 (01:00→22:00)
[2017-11-06] MEDS: ALBUTEROL/IPRATROPIUM (NEB) 3 ML AMP HHN ×4 (01:40→21:01)
[2017-11-06] MEDS: hydrALAzine 20 MG INJ IV (04:14)
[2017-11-06] MEDS: metFORMIN 500 MG TAB GTB ×2 (08:50→21:57)
[2017-11-06] MEDS: AMLODIPINE 10 MG TAB GTB (08:51)
[2017-11-06] MEDS: LABETALOL 100 MG TAB GTB ×2 (08:52→21:00)
[2017-11-06] MEDS: FAMOTIDINE 20 MG TAB GTB ×2 (08:52→21:57)
[2017-11-06] MEDS: FUROSEMIDE 40 MG TAB GTB (08:52)
[2017-11-06] MEDS: LEVETIRACETAM (100 MG/ML) 5ML CUP GTB ×2 (08:53→21:57)
[2017-11-06] MEDS: SODIUM HYPOCHLORITE 0.125% 473 ML BTL IRR (08:53)
[2017-11-06] MEDS: MAGNESIUM/AMINO ACIDS TAB GTB (08:53)
[2017-11-06] MEDS: DOCUSATE SODIUM 10 MG/ML (10ML CUP) GTB ×2 (08:53→21:57)
[2017-11-06] MEDS: NYSTATIN 15 GM OINT TOP ×2 (13:34→22:01)
[2017-11-06] MEDS: INSULIN GLARGINE [LANtus] 3 ML PEN SC (21:59)
[2017-11-07] MEDS: METOCLOPRAMIDE 10 MG TAB GTB ×4 (00:43→18:47)
[2017-11-07] MEDS: INSULIN ASPART [NOVOLOG] 3 ML PEN SC ×6 (00:54→21:00)
[2017-11-07] MEDS: ALBUTEROL/IPRATROPIUM (NEB) 3 ML AMP HHN ×4 (01:59→20:03)
[2017-11-07 09:40] LABS: ADD MAN DIFF? NO
[2017-11-07 09:43] LABS: WHITE BLOOD COUNT 12.6 10^3/ul (4.8-10.8)
[2017-11-07 09:43] LABS: BASOPHIL # 0.1 10^3/ul (0.0-0.1); BASOPHILS % 0.4 % (0.0-2.0); EOSINOPHILS # 0.2 10^3/ul (0.0-0.5); EOSINOPHILS % 1.5 % (0.0-7.0); HEMATOCRIT 28.4 % (42.0-52.0); HEMOGLOBIN 9.4 g/dl (14.0-18.0); LYMPHOCYTES # 1.1 10^3/ul (0.8-2.9); MEAN CORPUSCULAR HEMOGLOBIN 29.9 pg (29.0-33.0); MEAN CORPUSCULAR HGB CONC 33.1 g/dl (32.0-37.0); MEAN CORPUSCULAR VOLUME 90.4 fl (82.0-101.0); MEAN PLATELET VOLUME 9.2 fl (7.4-10.4); MONOCYTE # 0.8 10^3/ul (0.3-0.9); MONOCYTES % 6.2 % (0.0-11.0); NEUTROPHIL # 10.4 10^3/ul (1.6-7.5); NEUTROPHILS % 82.5 % (39.0-77.0); PLATELET COUNT 379 10^3/UL (140-415); RED BLOOD COUNT 3.14 10^6/ul (4.70-6.10); RED CELL DISTRIBUTION WIDTH 14.1 % (11.5-14.5)
[2017-11-07 10:03] LABS: ALANINE AMINOTRANSFERASE 19 IU/L (13-69); ALBUMIN 3.3 g/dl (3.3-4.9); ALBUMIN/GLOBULIN RATIO 0.82; ALKALINE PHOSPHATASE 97 IU/L (42-121); ANION GAP 9 (8-16); ASPARTATE AMINO TRANSFERASE 25 IU/L (15-46); BILIRUBIN,INDIRECT 0.3 mg/dl (0-1.1); BILIRUBIN,TOTAL 0.3 mg/dl (0.2-1.3); BLOOD UREA NITROGEN 23 mg/dl (7-20); CALCIUM 9.5 mg/dl (8.4-10.2); CARBON DIOXIDE 38 mmol/L (21-31); CHLORIDE 92 mmol/L (97-110); CREATININE 0.68 mg/dl (0.61-1.24); GLUCOSE 97 mg/dl (70-220); SODIUM 136 mmol/L (135-144); TOTAL PROTEIN 7.3 g/dl (6.1-8.1)
[2017-11-07] MEDS: LEVETIRACETAM (100 MG/ML) 5ML CUP GTB ×2 (10:09→21:15)
[2017-11-07] MEDS: metFORMIN 500 MG TAB GTB ×2 (10:10→21:16)
[2017-11-07] MEDS: DOCUSATE SODIUM 10 MG/ML (10ML CUP) GTB ×2 (10:10→21:15)
[2017-11-07] MEDS: FAMOTIDINE 20 MG TAB GTB ×2 (10:10→21:16)
[2017-11-07] MEDS: FUROSEMIDE 40 MG TAB GTB (10:10)
[2017-11-07] MEDS: MAGNESIUM/AMINO ACIDS TAB GTB (10:10)
[2017-11-07] MEDS: LABETALOL 100 MG TAB GTB ×2 (10:11→21:16)
[2017-11-07] MEDS: SODIUM HYPOCHLORITE 0.125% 473 ML BTL IRR (10:11)
[2017-11-07] MEDS: AMLODIPINE 10 MG TAB GTB (10:11)
[2017-11-07] MEDS: NYSTATIN 15 GM OINT TOP ×2 (10:12→21:16)
[2017-11-07] MEDS ORDERED: POTASSIUM CHLORIDE 50 ML IVPB (12:30)
[2017-11-07] MEDS: POTASSIUM CHLORIDE 20 MEQ/SW 100 ML IVPB ×2 (14:31→17:11)
[2017-11-07] MEDS: INSULIN GLARGINE [LANtus] 3 ML PEN SC (21:11)
[2017-11-07] MEDS: BACITRACIN/POLYMYXIN 28.35 GM OINT TOP (21:17)
[2017-11-07] MEDS: ACETAMINOPHEN 650MG/20.3ML CUP GTB (22:30)
[2017-11-08] MEDS: METOCLOPRAMIDE 10 MG TAB GTB ×4 (00:21→17:18)
[2017-11-08] MEDS: INSULIN ASPART [NOVOLOG] 3 ML PEN SC ×6 (00:23→20:57)
[2017-11-08] MEDS: ALBUTEROL/IPRATROPIUM (NEB) 3 ML AMP HHN ×4 (01:59→20:48)
[2017-11-08] MEDS: ONDANSETRON 4 MG INJ IV (02:16)
[2017-11-08] MEDS: hydrALAzine 20 MG INJ IV (02:17)
[2017-11-08 06:46] LABS: ALANINE AMINOTRANSFERASE 18 IU/L (13-69); ALBUMIN 3.7 g/dl (3.3-4.9); ALBUMIN/GLOBULIN RATIO 0.84; ALKALINE PHOSPHATASE 107 IU/L (42-121); ANION GAP 13 (8-16); ASPARTATE AMINO TRANSFERASE 21 IU/L (15-46); BILIRUBIN,INDIRECT 0.5 mg/dl (0-1.1); BILIRUBIN,TOTAL 0.5 mg/dl (0.2-1.3); BLOOD UREA NITROGEN 22 mg/dl (7-20); CALCIUM 9.6 mg/dl (8.4-10.2); CARBON DIOXIDE 37 mmol/L (21-31); CHLORIDE 93 mmol/L (97-110); CREATININE 0.66 mg/dl (0.61-1.24); GLUCOSE 106 mg/dl (70-220); POTASSIUM 3.5 mmol/L (3.5-5.1); SODIUM 139 mmol/L (135-144); TOTAL PROTEIN 8.1 g/dl (6.1-8.1)
[2017-11-08] MEDS: DOCUSATE SODIUM 10 MG/ML (10ML CUP) GTB ×2 (08:38→20:53)
[2017-11-08] MEDS: LEVETIRACETAM (100 MG/ML) 5ML CUP GTB ×2 (08:38→20:54)
[2017-11-08] MEDS: metFORMIN 500 MG TAB GTB ×2 (08:41→20:54)
[2017-11-08] MEDS: MAGNESIUM/AMINO ACIDS TAB GTB (08:41)
[2017-11-08] MEDS: FAMOTIDINE 20 MG TAB GTB ×2 (08:42→20:54)
[2017-11-08] MEDS: FUROSEMIDE 40 MG TAB GTB (08:42)
[2017-11-08] MEDS: LABETALOL 100 MG TAB GTB ×2 (08:43→20:55)
[2017-11-08] MEDS: SODIUM HYPOCHLORITE 0.125% 473 ML BTL IRR (08:44)
[2017-11-08] MEDS: AMLODIPINE 10 MG TAB GTB (08:44)
[2017-11-08] MEDS: NYSTATIN 15 GM OINT TOP ×2 (08:48→20:59)
[2017-11-08] MEDS: BACITRACIN/POLYMYXIN 28.35 GM OINT TOP ×4 (09:00→21:02)
[2017-11-08] MEDS: INSULIN GLARGINE [LANtus] 3 ML PEN SC (20:58)
[2017-11-09] MEDS: METOCLOPRAMIDE 10 MG TAB GTB ×3 (00:56→12:44)
[2017-11-09] MEDS: ALBUTEROL/IPRATROPIUM (NEB) 3 ML AMP HHN ×3 (01:09→13:37)
[2017-11-09] MEDS: INSULIN ASPART [NOVOLOG] 3 ML PEN SC ×4 (01:54→12:44)
[2017-11-09] MEDS: ONDANSETRON 4 MG INJ IV (05:38)
[2017-11-09] MEDS: AMLODIPINE 10 MG TAB GTB (09:00)
[2017-11-09] MEDS: LABETALOL 100 MG TAB GTB (09:00)
[2017-11-09] MEDS: DOCUSATE SODIUM 10 MG/ML (10ML CUP) GTB (09:11)
[2017-11-09] MEDS: FUROSEMIDE 40 MG TAB GTB (09:12)
[2017-11-09] MEDS: metFORMIN 500 MG TAB GTB (09:12)
[2017-11-09] MEDS: LEVETIRACETAM (100 MG/ML) 5ML CUP GTB (09:12)
[2017-11-09] MEDS: FAMOTIDINE 20 MG TAB GTB (09:14)
[2017-11-09] MEDS: MAGNESIUM/AMINO ACIDS TAB GTB (09:19)
[2017-11-09] MEDS: SODIUM HYPOCHLORITE 0.125% 473 ML BTL IRR (09:20)
[2017-11-09] MEDS: BACITRACIN/POLYMYXIN 28.35 GM OINT TOP (09:20)
[2017-11-09] MEDS: NYSTATIN 15 GM OINT TOP (09:20)
[2017-11-09] MEDS: LINAGLIPTIN 5 MG TABLET PO (14:32)
[2017-11-09] MEDS: BISACODYL 10 MG SUPP PR (16:29)
== END 2017-11-09 17:45 | DRG 853 ==
LOC: MS4 10-20 13:35 → MS2 10-30 01:00 → ICU 10-31 06:55 → TEL 11-01 05:08 → MS2 11-05 22:03 → ICU 14:20 → MS2 10-30 19:30
PROC: 0W9F0ZZ Drainage of Abdominal Wall, Open Approach (ICD-10-PCS; principal; 2017-10-23 10:43)
PROC: 0JB80ZZ Excision of Abdomen Subcutaneous Tissue and Fascia, Open Approach (ICD-10-PCS; 2017-10-23 10:43)
PROC: 5A1955Z Respiratory Ventilation, Greater than 96 Consecutive Hours (ICD-10-PCS; 2017-10-23 10:43)
PROC: 0W9F3ZZ Drainage of Abdominal Wall, Percutaneous Approach (ICD-10-PCS; 2017-10-23 10:43)
PROC: 0DH68UZ Insertion of Feeding Device into Stomach, Via Natural or Artificial Opening Endoscopic (ICD-10-PCS; 2017-10-23 10:43)
PROC: 0DJ08ZZ Inspection of Upper Intestinal Tract, Via Natural or Artificial Opening Endoscopic (ICD-10-PCS; 2017-10-23 10:43)
PROC: 30233N1 Transfusion of Nonautologous Red Blood Cells into Peripheral Vein, Percutaneous Approach (ICD-10-PCS; 2017-10-23 10:43)
PROC: 0T9B70Z Drainage of Bladder with Drainage Device, Via Natural or Artificial Opening (ICD-10-PCS; 2017-10-23 10:43)
DX: A41.89 Other specified sepsis (principal); J96.01 Acute respiratory failure with hypoxia; G93.49 Other encephalopathy; J15.5 Pneumonia due to Escherichia coli; J15.1 Pneumonia due to Pseudomonas; R65.21 Severe sepsis with septic shock; I63.9 Cerebral infarction, unspecified; I62.9 Nontraumatic intracranial hemorrhage, unspecified; E87.0 Hyperosmolality and hypernatremia; Z99.11 Dependence on respirator [ventilator] status; D62 Acute posthemorrhagic anemia; I82.612 Acute embolism and thrombosis of superficial veins of left upper extremity; E87.3 Alkalosis; K94.22 Gastrostomy infection; L03.311 Cellulitis of abdominal wall; B37.89 Other sites of candidiasis; E11.65 Type 2 diabetes mellitus with hyperglycemia; E87.6 Hypokalemia; E78.5 Hyperlipidemia, unspecified; E83.51 Hypocalcemia; E88.09 Other disorders of plasma-protein metabolism, not elsewhere classified; I10 Essential (primary) hypertension; K94.29 Other complications of gastrostomy; K94.21 Gastrostomy hemorrhage; K29.50 Unspecified chronic gastritis without bleeding; R06.03 Acute respiratory distress; R33.9 Retention of urine, unspecified; R13.10 Dysphagia, unspecified; Z93.1 Gastrostomy status
CPT/HCPCS: 36430; 36600; 70450; 70553; 71045; 71046; 74018; 74150; 74178; 80048; 80053; 80202; 81001; 81003; 82728; 82803; 82962; 83036; 83540; 83735; 84100; 84132; 85014; 85018; 85025; 86850; 86900; 86901; 86920; 87040; 87070; 87075; 87081; 87086; 87102; 88305; 88312; 92526; 92610; 93005; 94003; 94640; 94664; 94770; 97163; 97164

== ENCOUNTER 2017-11-11 10:13 | Emergency (ER) | payer OTHER ==
[2017-11-11] MEDS ORDERED: DIATR MEGLU/DIATRIZOATE SODIUM 120 ML BTL (11:11)
== END 2017-11-11 14:05 | disposition home or self-care (01) ==
LOC: E/R 14:05
DX: Z43.1 Encounter for attention to gastrostomy (principal); E11.9 Type 2 diabetes mellitus without complications; Z79.4 Long term (current) use of insulin; Z87.891 Personal history of nicotine dependence
CPT/HCPCS: 43760; 74018; 99284-25